=== PATIENT | female | born 1955 | race Caucasian/White ===

== ENCOUNTER 2016-08-13 23:04 | Emergency (ER) | payer MEDICAID ==
[2016-08-13 23:46] VITALS: BP 149/87
[2016-08-14] MEDS ORDERED: Cephalexin 250 MG Cap PO ONE (02:05)
--- NOTE | 2016-08-14 02:11 | EDM.PDOC ---
ED HPI GENERAL MEDICAL PROBLEM - General Chief Complaint: Skin Complaint Stated Complaint: SKIN RASH Time Seen by Provider: 08/14/16 02:00 Source of Information: Reports: Patient History Limitations: Reports: No Limitations - History of Present Illness INITIAL COMMENTS - FREE TEXT/NARRATIVE: Doretha presents today with redness, warmth and swelling of her left arm including the left elbow and left forearm. She has noticed some pain as well as pruritus. This feels similar to previous episodes of cellulitis in the same area. She has had fatigue and mild nausea throughout the day but has not had any vomiting. No significant pain at this time. No complaints of fevers or chills. No abdominal pain. Left Arm Pain Score (Numeric/FACES): 8 - Related Data Allergies Allergy/AdvReac Type Severity Reaction Status Date / Time acetaminophen [From Vicodin] AdvReac Vomiting Verified 06/23/15 11:57 hydrocodone bitartrate AdvReac Vomiting Verified 08/13/16 23:46 [From Vicodin] morphine AdvReac Vomiting Verified 08/13/16 23:46 oxycodone HCl [From Percodan] AdvReac Vomiting Verified 08/13/16 23:46 oxycodone terephthalate AdvReac Vomiting Verified 08/13/16 23:46 [From Percodan] pentazocine lactate AdvReac Vomiting Verified 08/13/16 23:46 [From Talwin] Home Meds: Home Meds Insulin Glarg,Human.Rec.Analog [LantUS] 30 unit SQ DAILY 05/05/13 [History] Lisinopril [Lisinopril] 5 mg PO DAILY 05/05/13 [History] Omeprazole [Omeprazole] 40 mg PO DAILY 05/05/13 [History] atorvaSTATin Calcium [Atorvastatin Calcium] 80 mg PO DAILY 05/05/13 [History] metFORMIN [Glucophage] 500 mg PO BID 05/05/13 [History] Liraglutide [Victoza] 1.2 mg SQ DAILY 08/13/16 [History] Past Medical History Other HEENT History: throat narrows and needs dilations done Cardiovascular History: Reports: High Cholesterol, Hypertension Gastrointestinal History: Reports: Diverticulosis, GERD OVEREDGER History: Reports: Musculoskeletal History: Reports: Back Pain, Chronic Neurological History: Reports: Neuropathy, Diabetic Psychiatric History: Reports: Depression Endocrine/Metabolic History: Reports: Diabetes, Type II Oncologic (Cancer) History: Reports: Breast Dermatologic History: Reports: Cellulitis - Infectious Disease History Infectious Disease History: Reports: Chicken Pox, Measles, Mumps - Past Surgical History GI Surgical History: Reports: Cholecystectomy, Colonoscopy, EGD Oncologic Surgical History: Reports: Lumpectomy, Mastectomy Social & Family History - Tobacco Use Smoking Status *Q: Never Smoker Second Hand Smoke Exposure: Yes - Caffeine Use Caffeine Use: Reports: Soda - Alcohol Use Days Per Week of Alcohol Use: 0 Number of Drinks Per Day: 1 Total Drinks Per Week: 0 - Recreational Drug Use Recreational Drug Use: No ED ROS GENERAL - Review of Systems Review Of Systems: See Below (A complete 12 point review of systems was obtained. Pertinent positives and negatives are noted in the history of present illness. All other systems were reviewed and were negative except as noted.) ED EXAM, SKIN/RASH Exam: See Below General Appearance: Alert, No Apparent Distress Head: Other Respiratory/Chest: No Respiratory Distress Cardiovascular: Regular Rate, Rhythm GI/Abdominal: Soft, No Distention Extremities: Normal Range of Motion, No Pedal Edema, Other (Small nodule medial portion left foot. This is soft and mobile) Skin: Warm, Dry, Erythema (Posterior left arm proximal to the elbow and extending onto the forearm), Excoriations (Mild left forearm), Increased Warmth , Other (No open areas) Course - Vital Signs Last Recorded V/S: Last Vital Signs Temp 36.4 C 08/13/16 23:42 Pulse 101 H 08/13/16 23:42 Resp 14 08/13/16 23:42 BP 149/87 H 08/13/16 23:42 Pulse Ox 95 08/13/16 23:42 - Orders/Labs/Meds Orders: Active Orders 24 hr Category Date Time Status Cephalexin [Keflex] Med 08/14/16 02:05 Once 500 mg PO ONETIME ONE - Re-Assessments/Exams Free Text/Narrative Re-Assessment/Exam: 08/14/16 02:09 Assessment Cellulitis left arm - history of similar and usually responds well to cephalexin. No evidence for sepsis at this time. -Cephalexin 500 mg 3 times daily for 8 days Follow-up of symptoms worsen or do not continue to get better Departure - Departure Time of Disposition: 02:15 Disposition: Home, Self-Care 01 Condition: Good Clinical Impression: Cellulitis - Discharge Information Instructions: Cellulitis, Adult Forms: ED Department Discharge Additional Instructions: Take cephalexin 500 mg 3 times daily with food for 8 days Follow-up with Dr. Luis if symptoms do not continue to improve or they get worse I would recommend that you avoid work and strenuous activities tomorrow but should be safe to return to work on Sunday - My Orders Last 24 Hours: My Active Orders 08/14/16 02:05 Cephalexin [Keflex] 500 mg PO ONETIME ONE - Assessment/Plan Last 24 Hours: My Active Orders 08/14/16 02:05 Cephalexin [Keflex] 500 mg PO ONETIME ONE
== END 2016-08-14 02:21 | disposition home or self-care (01) ==
LOC: JP.ED 23:04
DX: L03.114 Cellulitis of left upper limb (principal); E11.40 Type 2 diabetes mellitus with diabetic neuropathy, unspecified; I10 Essential (primary) hypertension; E78.00 Pure hypercholesterolemia, unspecified; K21.9 Gastro-esophageal reflux disease without esophagitis; Z90.49 Acquired absence of other specified parts of digestive tract; Z98.890 Other specified postprocedural states; Z79.4 Long term (current) use of insulin; Z79.84 Long term (current) use of oral hypoglycemic drugs; Z79.899 Other long term (current) drug therapy; Z88.5 Allergy status to narcotic agent; Z88.6 Allergy status to analgesic agent; Z88.8 Allergy status to other drugs, medicaments and biological substances
CPT/HCPCS: 99283; A9270

== ENCOUNTER 2017-07-18 00:51 | Inpatient (IN) | payer MEDICAID ==
[2017-07-18] MEDS ORDERED: Lactated Ringers 1,000 ML IV ONE (01:24)
[2017-07-18] MEDS ORDERED: Acetaminophen 500 MG Tab PO ONE (01:25)
--- NOTE | 2017-07-18 01:38 | EDM.PDOC ---
ED HPI GENERAL MEDICAL PROBLEM - General Chief Complaint: Skin Complaint Stated Complaint: CELLULITIS Time Seen by Provider: 07/18/17 01:20 Source of Information: Reports: Patient, Old Records, RN History Limitations: Reports: No Limitations - History of Present Illness INITIAL COMMENTS - FREE TEXT/NARRATIVE: 61 yo female presents with increased redness and warmth to the left arm starting around 9pm. Has had cellulitis in that arm in the past. Is s/p mastectomy in the L breast and has lymphedema in that arm. Feels chilled. No tx prior to arrival. Onset Date: 07/17/17 Duration: Hour(s):, Getting Worse Location: Reports: Upper Extremity, Left Quality: Reports: Dull Severity: Mild Improves with: Reports: None Worsens with: Reports: Other (time) Context: Reports: Other (see HPI) Associated Symptoms: Reports: Fever/Chills, Other (erythema) Treatments LOAN REVIEW OFFICER: Reports: Other (see below) (none) - Related Data Allergies Allergy/AdvReac Type Severity Reaction Status Date / Time propoxyphene [From Darvon] Allergy Nausea and Verified 07/18/17 01:18 Vomiting acetaminophen [From Vicodin] AdvReac Vomiting Verified 06/23/15 11:57 hydrocodone bitartrate AdvReac Vomiting Verified 08/13/16 23:46 [From Vicodin] morphine AdvReac Vomiting Verified 08/13/16 23:46 oxycodone HCl [From Percodan] AdvReac Vomiting Verified 08/13/16 23:46 oxycodone terephthalate AdvReac Vomiting Verified 08/13/16 23:46 [From Percodan] pentazocine lactate AdvReac Vomiting Verified 08/13/16 23:46 [From Talwin] Home Meds: Home Meds Insulin Glarg,Human.Rec.Analog [LantUS] 30 unit SQ DAILY 05/05/13 [History] Lisinopril 5 mg PO DAILY 05/05/13 [History] Omeprazole 40 mg PO DAILY 05/05/13 [History] atorvaSTATin Calcium [Atorvastatin Calcium] 80 mg PO DAILY 05/05/13 [History] metFORMIN [Glucophage] 500 mg PO DAILY 05/05/13 [History] Liraglutide [Victoza] 1.2 mg SQ DAILY 08/13/16 [History] Past Medical History HEENT History: Reports: Impaired Vision Other HEENT History: throat narrows and needs dilations done Cardiovascular History: Reports: High Cholesterol, Hypertension Gastrointestinal History: Reports: Diverticulosis, GERD RELATIONS COORDINATOR History: Reports: Musculoskeletal History: Reports: Back Pain, Chronic Neurological History: Reports: Neuropathy, Diabetic Psychiatric History: Reports: Depression Endocrine/Metabolic History: Reports: Diabetes, Type II Oncologic (Cancer) History: Reports: Breast Dermatologic History: Reports: Cellulitis - Infectious Disease History Infectious Disease History: Reports: Chicken Pox, Shingles - Past Surgical History GI Surgical History: Reports: Cholecystectomy, Colonoscopy, EGD Musculoskeletal Surgical History: Reports: Other (See Below) Other Musculoskeletal Surgeries/Procedures:: rotator cuff right Oncologic Surgical History: Reports: Lumpectomy Social & Family History - Family History Family Medical History: Noncontributory - Tobacco Use Smoking Status *Q: Never Smoker - Caffeine Use Caffeine Use: Reports: Soda - Recreational Drug Use Recreational Drug Use: No ED ROS GENERAL - Review of Systems Review Of Systems: See Below Constitutional: Reports: Fever, Chills HEENT: Reports: No Symptoms Respiratory: Reports: No Symptoms Cardiovascular: Reports: No Symptoms GI/Abdominal: Reports: No Symptoms : Reports: No Symptoms Musculoskeletal: Reports: No Symptoms Skin: Reports: Erythema (L arm) Neurological: Reports: No Symptoms Psychiatric: Reports: No Symptoms ED EXAM, SKIN/RASH Exam: See Below Exam Limited By: No Limitations General Appearance: Alert, WD/WN, No Apparent Distress Eye Exam: Bilateral Eye: Normal Inspection Ears: Normal External Exam, Normal Canal, Hearing Grossly Normal, Normal TMs Nose: Normal Inspection, Normal Mucosa, No Blood Throat/Mouth: Normal Inspection, Normal Lips, Normal Oropharynx, Normal Voice, No Airway Compromise Head: Atraumatic, Normocephalic Neck: Normal Inspection, Supple Respiratory/Chest: No Respiratory Distress, Lungs Clear, Normal Breath Sounds, No Accessory Muscle Use Cardiovascular: Regular Rate, Rhythm, Tachycardia GI/Abdominal: Normal Bowel Sounds, Soft, Non-Tender, No Distention Back Exam: Normal Inspection. No: CVA Tenderness (R), CVA Tenderness (L) Extremities: Normal Inspection, Normal Range of Motion, Non-Tender, No Pedal Edema Neurological: Alert, Oriented, CN II-XII Intact, Normal Cognition, No Motor/ Sensory Deficits Psychiatric: Normal Affect, Normal Mood Skin: Warm, Dry, Intact, Erythema (and warmth of the L arm, more warmth noted than erythema) Location, Skin: Upper Extremity, Left Characteristics: Confluent, Erythematous Associated features: Warmth Course - Vital Signs Text/Narrative:: Dr. James notified at 0245h, will see in ER. Last Recorded V/S: Last Vital Signs Temp 37.5 C 07/18/17 02:26 Pulse 109 H 07/18/17 01:20 Resp 18 07/18/17 01:20 BP 180/98 H 07/18/17 02:26 Pulse Ox 97 07/18/17 01:20 - Orders/Labs/Meds Orders: Active Orders 24 hr Category Date Time Status CULTURE BLOOD [BC] Stat Lab 07/18/17 01:35 Received CULTURE BLOOD [BC] Stat Lab 07/18/17 02:20 Received UA W/MICROSCOPIC [URIN] Stat Lab 07/18/17 01:25 Ordered Labs: Laboratory Tests 07/18/17 07/18/17 07/18/17 Range/Units 01:35 01:35 01:35 WBC 13.5 H (4.5-11.0) K/uL RBC 4.67 (3.30-5.50) M/uL Hgb 14.0 (12.0-15.0) g/dL Hct 41.6 (36.0-48.0) % MCV 89 (80-98) fL MCH 30 (27-31) pg MCHC 34 (32-36) % Plt Count 318 (150-400) K/uL Sodium 137 L (140-148) mmol/L Potassium 3.6 (3.6-5.2) mmol/L Chloride 102 (100-108) mmol/L Carbon Dioxide 27 (21-32) mmol/L Anion Gap 11.6 (5.0-14.0) mmol/L BUN 12 (7-18) mg/dL Creatinine 0.8 (0.6-1.0) mg/dL Est Cr Clr Drug Dosing 64.58 mL/min Estimated GFR (MDRD) > 60 (>60) Glucose 293 H (74-106) mg/dL Lactic Acid 2.8 H (0.4-2.0) mmol/L Calcium 8.9 (8.5-10.1) mg/dL Meds: Medications Discontinued Medications Generic Name Dose Route Start Last Admin Trade Name Cecilia PRN Reason Stop Dose Admin Acetaminophen 1,000 mg 07/18/17 01:25 07/18/17 01:44 Tylenol Extra Strength PO 07/18/17 01:26 1,000 mg ONETIME ONE Administration Lactated Ringer's 1,000 mls @ 1,000 mls/hr 07/18/17 01:24 07/18/17 01:44 Ringers, Lactated IV 07/18/17 02:23 1,000 mls/hr BOLUS ONE Administration Clindamycin Phosphate 900 mg/ 106 mls @ 200 mls/hr 07/18/17 02:10 07/18/17 02 :19 Sodium Chloride IV 07/18/17 02:41 200 mls/hr ONETIME ONE Administration Trimethoprim/Sulfamethoxazole 1 tab 07/18/17 02:10 07/18/17 02:19 Septra Ds PO 07/18/17 02:11 1 tab ONETIME ONE Administration Departure - Departure Time of Disposition: 03:10 Disposition: Admitted As Inpatient 67 Condition: Fair Clinical Impression: Elevated blood sugar Cellulitis Qualifiers: Site of cellulitis: extremity Site of cellulitis of extremity: upper extremity Laterality: left Qualified Code(s): L03.114 - Cellulitis of left upper limb - Discharge Information Referrals: PCP,None [Primary Care Provider] - Forms: ED Department Discharge - My Orders Last 24 Hours: My Active Orders 07/18/17 01:25 UA W/MICROSCOPIC [URIN] Stat 07/18/17 01:35 CULTURE BLOOD [BC] Stat 07/18/17 02:20 CULTURE BLOOD [BC] Stat - Assessment/Plan Last 24 Hours: My Active Orders 07/18/17 01:25 UA W/MICROSCOPIC [URIN] Stat 07/18/17 01:35 CULTURE BLOOD [BC] Stat 07/18/17 02:20 CULTURE BLOOD [BC] Stat
[2017-07-18] MEDS ORDERED: Clindamycin Phosphate 900 MG in Sodium Chloride 0.9% 100 ML IV ONE (02:10)
[2017-07-18] MEDS ORDERED: Sulfamethoxazole/Trimethoprim 800-160 MG Tab PO ONE (02:10)
[2017-07-18] MEDS ORDERED: Ondansetron 4 MG Tab.DIS PO PRN (03:27)
[2017-07-18] MEDS ORDERED: Piperacillin/Tazobactam 3.375 GM in Sodium Chloride 0.9% 50 ML IV SCH ×2 (03:45→10:00)
[2017-07-18] MEDS ORDERED: Piperacillin/Tazobactam 3.375 GM in Sodium Chloride 0.9% 50 ML IV STA (03:46)
--- NOTE | 2017-07-18 03:49 | PCM.HP ---
H&P History of Present Illness - General Date of Service: 07/18/17 Admit Problem/Dx: Admission Diagnosis/Problem Admission Diagnosis/Problem Cellulitis Source of Information: Patient History Limitations: Reports: No Limitations - History of Present Illness Initial Comments - Free Text/Narative: 61-year-old female with past medical history of diabetes, hypertension, hyperlipidemia came to the clinic with a complaining of redness of his left upper extremity started since last 6 hours. Patient reports that her redness is gradually progressing. Patient reports the pain is 2-3/10 intensity, throbbing type pain. Denies any recent injury. Patient complaining of one episode of fever denies any nausea, vomiting, abdominal pains. Patient denies any pain with urination, disturbance in bowel or bladder habits. Denies any chest pain, exertional dyspnea. Patient is a full code In the ED patient was diagnosed with cellulitis and received clindamycin and Bactrim medication. Patient labs showed lactic acid is elevated 2.8. Other review of systems are not significant. - Related Data Allergies/Adverse Reactions: Allergies Allergy/AdvReac Type Severity Reaction Status Date / Time propoxyphene [From Darvon] Allergy Nausea and Verified 07/18/17 01:18 Vomiting acetaminophen [From Vicodin] AdvReac Vomiting Verified 06/23/15 11:57 hydrocodone bitartrate AdvReac Vomiting Verified 08/13/16 23:46 [From Vicodin] morphine AdvReac Vomiting Verified 08/13/16 23:46 oxycodone HCl [From Percodan] AdvReac Vomiting Verified 08/13/16 23:46 oxycodone terephthalate AdvReac Vomiting Verified 08/13/16 23:46 [From Percodan] pentazocine lactate AdvReac Vomiting Verified 08/13/16 23:46 [From Talwin] Home Medications: Home Meds Insulin Glarg,Human.Rec.Analog [LantUS] 30 unit SQ DAILY 05/05/13 [History] Lisinopril 5 mg PO DAILY 05/05/13 [History] Omeprazole 40 mg PO DAILY 05/05/13 [History] atorvaSTATin Calcium [Atorvastatin Calcium] 80 mg PO DAILY 05/05/13 [History] metFORMIN [Glucophage] 500 mg PO DAILY 05/05/13 [History] Liraglutide [Victoza] 1.2 mg SQ DAILY 08/13/16 [History] Past Medical History HEENT History: Reports: Impaired Vision Other HEENT History: throat narrows and needs dilations done Cardiovascular History: Reports: High Cholesterol, Hypertension Gastrointestinal History: Reports: Diverticulosis, GERD I&C TECH History: Reports: Musculoskeletal History: Reports: Back Pain, Chronic Neurological History: Reports: Neuropathy, Diabetic Psychiatric History: Reports: Depression Endocrine/Metabolic History: Reports: Diabetes, Type II Oncologic (Cancer) History: Reports: Breast Dermatologic History: Reports: Cellulitis - Infectious Disease History Infectious Disease History: Reports: Chicken Pox, Shingles - Past Surgical History GI Surgical History: Reports: Cholecystectomy, Colonoscopy, EGD Musculoskeletal Surgical History: Reports: Other (See Below) Other Musculoskeletal Surgeries/Procedures:: rotator cuff right Oncologic Surgical History: Reports: Lumpectomy Social & Family History - Family History Family Medical History: Noncontributory - Tobacco Use Smoking Status *Q: Never Smoker - Caffeine Use Caffeine Use: Reports: Soda - Recreational Drug Use Recreational Drug Use: No H&P Review of Systems - Review of Systems: Review Of Systems: See Below General: Reports: Fever, Chills Pulmonary: Denies: Shortness of Breath, Wheezing, Pleuritic Chest Pain Cardiovascular: Denies: Chest Pain, Palpitations Gastrointestinal: Denies: Abdominal Pain, Anorexia, Black Stool, Constipation, Diarrhea Genitourinary: Denies: Dysuria, Frequency Musculoskeletal: Reports: Shoulder Pain. Denies: Neck Pain Skin: Denies: Cyanosis, Jaundice Psychiatric: Denies: Confusion Neurological: Denies: Confusion Hematologic/Lymphatic: Denies: Anemia, Easy Bleeding Immunologic: Denies: Anaphylaxis Exam - Exam Exam: See Below - Vital Signs Vital Signs: Last Vital Signs Temp 37.5 C 07/18/17 02:26 Pulse 109 H 07/18/17 01:20 Resp 18 07/18/17 01:20 BP 180/98 H 07/18/17 02:26 Pulse Ox 97 07/18/17 01:20 Weight: 78.5 kg - Exam General: Alert, Oriented Neck: Supple, Trachea Midline Lungs: Clear to Auscultation, Normal Respiratory Effort Cardiovascular: Regular Rate, Regular Rhythm GI/Abdominal Exam: Normal Bowel Sounds, Soft Extremities: Other (Redness present on the posterior surface of the left upper extremity tenderness is positive) Neuro Extensive - Mental Status: Alert, Oriented x3 - Patient Data Lab Results Last 24 hrs: Laboratory Results - last 24 hr 07/18/17 07/18/17 07/18/17 Range/Units 01:35 01:35 01:35 WBC 13.5 H (4.5-11.0) K/uL RBC 4.67 (3.30-5.50) M/uL Hgb 14.0 (12.0-15.0) g/dL Hct 41.6 (36.0-48.0) % MCV 89 (80-98) fL MCH 30 (27-31) pg MCHC 34 (32-36) % Plt Count 318 (150-400) K/uL Sodium 137 L (140-148) mmol/L Potassium 3.6 (3.6-5.2) mmol/L Chloride 102 (100-108) mmol/L Carbon Dioxide 27 (21-32) mmol/L Anion Gap 11.6 (5.0-14.0) mmol/L BUN 12 (7-18) mg/dL Creatinine 0.8 (0.6-1.0) mg/dL Est Cr Clr Drug Dosing 64.58 mL/min Estimated GFR (MDRD) > 60 (>60) Glucose 293 H (74-106) mg/dL Lactic Acid 2.8 H (0.4-2.0) mmol/L Calcium 8.9 (8.5-10.1) mg/dL Result Diagrams: 07/18/17 01:35 07/18/17 01:35 - Problem List (1) Cellulitis SNOMED Code(s): 328995793 ICD Code: L03.90 - CELLULITIS, UNSPECIFIED Status: Acute Current Visit: Yes Qualifiers: Site of cellulitis: extremity Site of cellulitis of extremity: upper extremity Laterality: left Qualified Code(s): L03.114 - Cellulitis of left upper limb (2) Diabetes SNOMED Code(s): 40521364 ICD Code: E11.9 - TYPE 2 DIABETES MELLITUS WITHOUT COMPLICATIONS Status: Acute Current Visit: Yes (3) Hyperlipidemia SNOMED Code(s): 02661611 ICD Code: E78.5 - HYPERLIPIDEMIA, UNSPECIFIED Status: Acute Current Visit : Yes (4) H/O rotator cuff surgery SNOMED Code(s): 495857894, 775099487 ICD Code: Z98.890 - OTHER SPECIFIED POSTPROCEDURAL STATES Status: Acute Current Visit: Yes Problem List Initiated/Reviewed/Updated: Yes Orders Last 24hrs: Active Orders 24 hr Category Date Time Status Patient Status [ADT] Routine ADT 07/18/17 03:27 Ordered Bedrest Bathroom Privileges [RC] ASDIRECTED Care 07/18/17 03:27 Ordered Height and Weight [RC] DAILY Care 07/18/17 03:27 Ordered Intake and Output [RC] QSHIFT Care 07/18/17 03:28 Ordered Oxygen Therapy [RC] PRN Care 07/18/17 03:27 Ordered Pulse Oximetry [RC] PRN Care 07/18/17 03:28 Ordered VTE/DVT Education [RC] Per Unit Routine Care 07/18/17 03:27 Ordered Vital Signs [RC] Q4H Care 07/18/17 03:27 Ordered Pharmacy Consult [Consult to Pharmacy] [CONS] Routine Cons 07/18/17 03:32 Ordered Consistent Carbohydrate Diet [DIET] Diet 07/18/17 Breakfast Ordered BASIC METABOLIC PANEL,BMP [CHEM] AM Lab 07/18/17 05:11 Ordered CBC WITH AUTO DIFF [HEME] AM Lab 07/18/17 05:11 Ordered CULTURE BLOOD [BC] Stat Lab 07/18/17 01:35 Received CULTURE BLOOD [BC] Stat Lab 07/18/17 02:20 Received LACTIC ACID [CHEM] Timed Lab 07/18/17 11:55 Ordered UA W/MICROSCOPIC [URIN] Stat Lab 07/18/17 01:25 Ordered Acetaminophen [Tylenol] Med 07/18/17 03:27 Ordered 650 mg PO Q4H PRN Enoxaparin [Lovenox] Med 07/18/17 09:00 Ordered 40 mg SUBCUT DAILY Insulin Detemir [Levemir] Med 07/18/17 21:00 Ordered 15 unit SUBCUT BEDTIME Insulin Lispro [HumaLOG] Med 07/18/17 07:30 Ordered See Protocol SUBCUT BIDAC Ondansetron [Zofran ODT] Med 07/18/17 03:27 Ordered 4 mg PO Q6H PRN Pantoprazole [ProTONIX] Med 07/18/17 09:00 Ordered 40 mg PO DAILY Piperacillin/Tazobactam [Zosyn] 3.375 gm Med 07/18/17 03:45 Ordered Sodium Chloride 0.9% [Normal Saline] 50 ml IV Q6H Resuscitation Status Routine Resus Stat 07/18/17 03:27 Ordered Medication Orders Acetaminophen (Tylenol) 650 mg PO Q4H PRN PRN Reason: Pain (Mild 1-3)/fever Enoxaparin Sodium (Lovenox) 40 mg SUBCUT DAILY EITAN Piperacillin Sod/Tazobactam (Sod 3.375 gm/ Sodium Chloride) 50 mls @ 100 mls/ hr IV Q6H EITAN Insulin Detemir (Levemir) 15 unit SUBCUT BEDTIME EITAN Insulin Human Lispro (Humalog) 0 unit SUBCUT BIDAC EITAN; Protocol Ondansetron HCl (Zofran Odt) 4 mg PO Q6H PRN PRN Reason: Nausea able to take PO Pantoprazole Sodium (Protonix) 40 mg PO DAILY [facility] Assessment/Plan Comment:: 61-year-old female with past medical history of diabetes, hyperlipidemia came to the ED with the complaining of redness of left upper extremity and diagnosed with cellulitis and admitted into the hospital in observation status. Started Zosyn 3.75 every 6 hourly We'll continue IV fluids Lactic acid is elevated 2.8, will repeat tomorrow Sliding-scale insulin for diabetes We'll hold metformin CBC, BMP tomorrow CODE STATUS full code Diet consistent carbohydrate diet IV fluids 125 mL per hour Ringer lactate DVT prophylaxis Lovenox 40 subcutaneous daily
[2017-07-18] MEDS: Lactated Ringers 1,000 ML IV SCH ×2 (06:01→16:40)
[2017-07-18] MEDS: Acetaminophen 325 MG Tab PO PRN ×2 (06:06→15:55)
[2017-07-18] MEDS ORDERED: Diphtheria,Pertussis(Acell),Tetanus Vaccine 0.5 ML SDV IM ONE ×2 (06:36→10:00)
[2017-07-18] MEDS ORDERED: Pantoprazole 40 MG Tab.CR PO SCH (07:30)
[2017-07-18] MEDS ORDERED: Insulin Lispro 100 Units/ML 3 ML Vial SUBCUT SCH (07:30)
[2017-07-18] MEDS ORDERED: Lactated Ringers 1,000 ML IV SCH (08:30)
[2017-07-18] MEDS: Enoxaparin 40 MG/0.4 ML Syringe SUBCUT SCH (08:45)
[2017-07-18] MEDS ORDERED: Vancomycin 1 GM SDV IV SCH (09:00)
[2017-07-18] MEDS ORDERED: Insulin Aspart 100 Units/ML 3 ML Pen ONE (09:19)
[2017-07-18] MEDS: Insulin Aspart 100 Units/ML 3 ML Pen SUBCUT SCH ×2 (09:24→16:41)
[2017-07-18] MEDS: Piperacillin/Tazobactam/Dext 3.375 GM in Premix Bag 1 BAG IV SCH ×3 (11:39→23:17)
--- NOTE | 2017-07-18 11:46 | PCM.PN ---
- General Info Date of Service: 07/18/17 Admission Dx/Problem (Free Text): Ms. Campbell is a 61-year-old woman who was admitted early this morning with abrupt onset of erythema of the left arm as well as fever. She has a known history of type 2 diabetes mellitus as well as lymphedema of the left arm secondary to previous mastectomy and axillary lymph node dissection. She's had previous episodes of cellulitis involving the arm. Symptoms began at approximately 9 PM last night and progressed rapidly to where she was experiencing fever chills and progressive weakness with erythema the left arm. She presented to the emergency room early this morning, blood cultures have been obtained and she was started on IV antibiotic therapy with Zosyn. Since admission vancomycin is also been started and she has received IV fluids per sepsis protocol. On evaluation she was found to be tachycardic and lactic acid level was elevated at 2.8. Lactic acid level this morning is pending. Functional Status: Reports: Pain Controlled, Tolerating Diet, Urinating - Review of Systems General: Reports: Fever, Weakness, Chills Pulmonary: Reports: No Symptoms Cardiovascular: Reports: No Symptoms Gastrointestinal: Reports: No Symptoms Skin: Reports: Other (Lymphedema left arm, cellulitis involving the hand and forearm) - Patient Data Vitals - Most Recent: Last Vital Signs Temp 98.0 F 07/18/17 11:27 Pulse 97 07/18/17 11:27 Resp 18 07/18/17 11:27 BP 142/70 H 07/18/17 11:27 Pulse Ox 96 07/18/17 11:27 Weight - Most Recent: 175 lb 9.606 oz I&O - Last 24 Hours: Intake & Output 07/17/17 07/18/17 07/18/17 22:59 06:59 14:59 Intake Total 240 Output Total 1650 Balance -1410 Lab Results Last 24 Hours: Laboratory Results - last 24 hr 07/18/17 07/18/17 07/18/17 Range/Units 01:35 01:35 01:35 WBC 13.5 H (4.5-11.0) K/uL RBC 4.67 (3.30-5.50) M/uL Hgb 14.0 (12.0-15.0) g/dL Hct 41.6 (36.0-48.0) % MCV 89 (80-98) fL MCH 30 (27-31) pg MCHC 34 (32-36) % Plt Count 318 (150-400) K/uL Neut % (Auto) (36-66) % Lymph % (Auto) (24-44) % [place] % (Auto) (2-6) % Eos % (Auto) (2-4) % Baso % (Auto) (0-1) % Sodium 137 L (140-148) mmol/L Potassium 3.6 (3.6-5.2) mmol/L Chloride 102 (100-108) mmol/L Carbon Dioxide 27 (21-32) mmol/L Anion Gap 11.6 (5.0-14.0) mmol/L BUN 12 (7-18) mg/dL Creatinine 0.8 (0.6-1.0) mg/dL Est Cr Clr Drug Dosing 64.58 mL/min Estimated GFR (MDRD) > 60 (>60) Glucose 293 H (74-106) mg/dL Lactic Acid 2.8 H (0.4-2.0) mmol/L Calcium 8.9 (8.5-10.1) mg/dL Urine Color Urine Appearance Urine pH (4.5-8.0) Ur Specific [place] (1.008-1.030) Urine Protein (NEGATIVE) mg/dL Urine Glucose (UA) (NEGATIVE) mg/dL Urine Ketones (NEGATIVE) mg/dL Urine Occult Blood (NEGATIVE) Urine Nitrite (NEGATIVE) Urine Bilirubin (NEGATIVE) Urine Urobilinogen (NORMAL) mg/dL Ur Leukocyte Esterase (NEGATIVE) Urine RBC (0-5) Urine WBC (0-5) Ur Epithelial Cells Amorphous Sediment Urine Bacteria Urine Mucus 07/18/17 07/18/17 07/18/17 Range/Units 03:34 06:04 06:04 WBC 12.8 H (4.5-11.0) K/uL RBC 4.40 (3.30-5.50) M/uL Hgb 13.2 (12.0-15.0) g/dL Hct 39.4 (36.0-48.0) % MCV 90 (80-98) fL MCH 30 (27-31) pg MCHC 34 (32-36) % Plt Count 314 (150-400) K/uL Neut % (Auto) 79 H (36-66) % Lymph % (Auto) 13 L (24-44) % [place] % (Auto) 7 H (2-6) % Eos % (Auto) 1 L (2-4) % Baso % (Auto) 0 (0-1) % Sodium 139 L (140-148) mmol/L Potassium 3.6 (3.6-5.2) mmol/L Chloride 103 (100-108) mmol/L Carbon Dioxide 25 (21-32) mmol/L Anion Gap 14.6 H (5.0-14.0) mmol/L BUN 10 (7-18) mg/dL Creatinine 0.8 (0.6-1.0) mg/dL Est Cr Clr Drug Dosing 67.29 mL/min Estimated GFR (MDRD) > 60 (>60) Glucose 189 H (74-106) mg/dL Lactic Acid (0.4-2.0) mmol/L Calcium 8.5 (8.5-10.1) mg/dL Urine Color Yellow Urine Appearance Clear Urine pH 6.0 (4.5-8.0) Ur Specific [place] 1.015 (1.008-1.030) Urine Protein Negative (NEGATIVE) mg/dL Urine Glucose (UA) >1000 H (NEGATIVE) mg/dL Urine Ketones Negative (NEGATIVE) mg/dL Urine Occult Blood Negative (NEGATIVE) Urine Nitrite Negative (NEGATIVE) Urine Bilirubin Negative (NEGATIVE) Urine Urobilinogen Normal (NORMAL) mg/dL Ur Leukocyte Esterase Negative (NEGATIVE) Urine RBC 0-5 (0-5) Urine WBC 0-5 (0-5) Ur Epithelial Cells Few Amorphous Sediment Not seen Urine Bacteria Few Urine Mucus Not seen Med Orders - Current: Current Medications Acetaminophen (Tylenol) 650 mg PO Q4H PRN PRN Reason: Pain (Mild 1-3)/fever Last Admin: 07/18/17 06:06 Dose: 650 mg Enoxaparin Sodium (Lovenox) 40 mg SUBCUT DAILY [facility] Last Admin: 07/18/17 08:45 Dose: 40 mg Lactated Ringer's (Ringers, Lactated) 1,000 mls @ 125 mls/hr IV ASDIRECTED [facility] Last Admin: 07/18/17 06:01 Dose: 125 mls/hr Lactated Ringer's (Ringers, Lactated) 1,000 mls @ 500 mls/hr IV ASDIRECTED [facility] Stop: 07/18/17 13:31 Last Admin: 07/18/17 08:39 Dose: 500 mls/hr Vancomycin HCl 1.25 gm/ Sodium (Chloride) 250 mls @ 250 mls/hr IV Q12H [facility] Last Admin: 07/18/17 09:01 Dose: 250 mls/hr Piperacillin/Tazobactam/ (Dextrose 3.375 gm/ Premix) 50 mls @ 100 mls/hr IV Q6H [facility] Last Admin: 07/18/17 11:39 Dose: 100 mls/hr Insulin Aspart (Novolog) 0 unit SUBCUT BIDAC [facility]; Protocol Last Admin: 07/18/17 09:24 Dose: 3 units Insulin Detemir (Levemir) 15 unit SUBCUT BEDTIME [facility] Ondansetron HCl (Zofran Odt) 4 mg PO Q6H PRN PRN Reason: Nausea able to take PO Pantoprazole Sodium (Protonix) 40 mg PO ACBREAKFAST [facility] Last Admin: 07/18/17 08:45 Dose: 40 mg Discontinued Medications Acetaminophen (Tylenol Extra Strength) 1,000 mg PO ONETIME ONE Stop: 07/18/17 01:26 Last Admin: 07/18/17 01:44 Dose: 1,000 mg Diphtheria/Tetanus/Acell Pertussis (Adacel) 0.5 ml IM .ONCE ONE Stop: 07/18/17 10:01 Last Admin: 07/18/17 09:11 Dose: 0.5 ml Lactated Ringer's (Ringers, Lactated) 1,000 mls @ 1,000 mls/hr IV BOLUS ONE Stop: 07/18/17 02:23 Last Admin: 07/18/17 01:44 Dose: 1,000 mls/hr Clindamycin Phosphate 900 mg/ (Sodium Chloride) 106 mls @ 200 mls/hr IV ONETIME ONE Stop: 07/18/17 02:41 Last Admin: 07/18/17 02:19 Dose: 200 mls/hr Piperacillin Sod/Tazobactam (Sod 3.375 gm/ Sodium Chloride) 50 mls @ 100 mls/ hr IV Q6H [facility] Last Admin: 07/18/17 03:47 Dose: Not Given Piperacillin Sod/Tazobactam (Sod 3.375 gm/ Sodium Chloride) 50 mls @ 100 mls/ hr IV NOW STA Stop: 07/18/17 04:15 Last Admin: 07/18/17 03:57 Dose: 100 mls/hr Piperacillin Sod/Tazobactam (Sod 3.375 gm/ Sodium Chloride) 50 mls @ 100 mls/ hr IV Q6H [facility] Insulin Aspart (Novolog) Confirm Administered Dose 300 unit .ROUTE .STK-MED ONE Stop: 07/18/17 09:20 Last Admin: 07/18/17 11:22 Dose: Not Given Insulin Human Lispro (Humalog) 0 unit SUBCUT BIDAC [facility]; Protocol Trimethoprim/Sulfamethoxazole (Septra Ds) 1 tab PO ONETIME ONE Stop: 07/18/17 02:11 Last Admin: 07/18/17 02:19 Dose: 1 tab - Exam Quality Assessment: DVT Prophylaxis General: Alert, Oriented, Cooperative, Mild Distress Lungs: Clear to Auscultation, Normal Respiratory Effort Cardiovascular: Regular Rate, Regular Rhythm, No Murmurs GI/Abdominal Exam: Soft, Non-Tender, No Organomegaly, No Distention Extremities: Increased Warmth (Left arm), Redness (Left arm), Other (Lymphedema left arm) - Problem List Review Problem List Initiated/Reviewed/Updated: Yes - My Orders Last 24 Hours: My Active Orders 07/18/17 08:30 Lactated Ringers [Ringers, Lactated] 1,000 ml IV ASDIRECTED 07/18/17 09:00 Vancomycin 1.25 gm Sodium Chloride 0.9% [Normal Saline] 250 ml IV Q12H 07/18/17 16:30 GLUCOSE POC LAB TO COLLECT [POC] QIDACANDBED 07/18/17 21:00 GLUCOSE POC LAB TO COLLECT [POC] QIDACANDBED 07/19/17 05:00 BASIC METABOLIC PANEL,BMP [CHEM] Timed CBC WITH AUTO DIFF [HEME] Timed MAGNESIUM [CHEM] Timed 07/20/17 08:30 VANCOMYCIN TROUGH [CHEM] Routine - Plan Plan:: ASSESSMENT AND PLAN CELLULITIS OF THE LEFT ARM WITH SEPSIS-underlying lymphedema and type 2 diabetes mellitus. History of previous cellulitis involving the arm -Add vancomycin, pharmacy to dose, pending culture results -Started Zosyn 3.75 every 6 hourly -IV fluids per protocol -Repeat lactic acid level pending -Blood cultures pending TYPE 2 DIABETES MELLITUS -Sliding-scale insulin for diabetes -We'll hold metformin -CBC, BMP tomorrow CODE STATUS full code Diet consistent carbohydrate diet DVT prophylaxis Lovenox 40 subcutaneous daily
[2017-07-18] MEDS: Lisinopril 5 MG Tab PO SCH (12:59)
[2017-07-18] MEDS: Pantoprazole 40 MG Tab.CR PO SCH (13:00)
[2017-07-18] MEDS: atorvaSTATin 20 MG Tab PO SCH (13:00)
[2017-07-18] MEDS: Liraglutide (rDNA Origin) 0.6 MG/0.1 ML 3 ML Pen SUBCUT SCH (13:01)
[2017-07-18] MEDS: Insulin Detemir 100 Units/ML 3 ML Pen SUBCUT SCH ×2 (13:03→22:11)
[2017-07-18] MEDS: HYDROmorphone 0.5 MG/0.5 ML Syringe IVPUSH PRN ×3 (16:58→22:16)
--- NOTE | 2017-07-18 20:04 | PCM.SN ---
- Free Text/Narrative Note: time: 19:59; call from [address] [place] [address]; lab result, sepsis risk 0: vital signs TPR 37.4-96-18 b/p 140/83 o2 sat 96% lactic acid 1.8, previous 2.1 at 12:00p A: lactic acid normal range P: continue present plan of care.
[2017-07-19] MEDS: Lactated Ringers 1,000 ML IV SCH ×2 (02:46→11:43)
[2017-07-19] MEDS: HYDROmorphone 0.5 MG/0.5 ML Syringe IVPUSH PRN ×3 (03:07→07:12)
[2017-07-19] MEDS: Piperacillin/Tazobactam/Dext 3.375 GM in Premix Bag 1 BAG IV SCH ×4 (04:54→22:15)
[2017-07-19] MEDS: Pantoprazole 40 MG Tab.CR PO SCH (07:19)
[2017-07-19] MEDS: Insulin Aspart 100 Units/ML 3 ML Pen SUBCUT SCH ×3 (08:15→20:48)
[2017-07-19] MEDS: atorvaSTATin 20 MG Tab PO SCH (08:19)
[2017-07-19] MEDS: Lisinopril 5 MG Tab PO SCH (08:19)
[2017-07-19] MEDS: Enoxaparin 40 MG/0.4 ML Syringe SUBCUT SCH (08:19)
[2017-07-19] MEDS: Liraglutide (rDNA Origin) 0.6 MG/0.1 ML 3 ML Pen SUBCUT SCH (08:20)
[2017-07-19] MEDS: Insulin Detemir 100 Units/ML 3 ML Pen SUBCUT SCH ×2 (08:20→20:49)
[2017-07-19] MEDS ORDERED: Magnesium Sulfate/Water 2 GM in Premix Bag 1 BAG IV ONE (10:30)
[2017-07-19] MEDS: Lactobacillus Rhamnosus GG (Probiotic) Cap PO SCH ×2 (10:38→20:48)
[2017-07-19] MEDS: Magnesium Oxide 400 MG Tab PO SCH ×2 (10:38→20:48)
--- NOTE | 2017-07-19 12:02 | PCM.PN ---
<Shakira,Dulce - Last Filed: 07/19/17 12:29> - General Info Date of Service: 07/19/17 Admission Dx/Problem (Free Text): Ms. Campbell is a 61-year-old woman who was admitted 07/18 with abrupt onset of erythema of the left arm as well as fever. She has a known history of type 2 diabetes mellitus as well as lymphedema of the left arm secondary to previous mastectomy and axillary lymph node dissection. She's had previous episodes of cellulitis involving the arm. Patient was started on vancomycin and zosyn for the cellulitus and early sepsis. Subjective Update: Ms. Campbell states she is feeling better but 'not quite there yet'. Patient states that she did not sleep very well more so due to pain unrelated to cellulitis from her recent surgery of the right shoulder and the tetanus shot received the previous day. Patient states the pain medication is helping some but leary of taking this due to nausea she gets with most pain medications. Functional Status: Reports: Pain Controlled, Tolerating Diet, Ambulating, Urinating - Review of Systems General: Reports: Fever HEENT: Reports: No Symptoms Pulmonary: Reports: No Symptoms. Denies: Shortness of Breath Cardiovascular: Reports: No Symptoms Gastrointestinal: Reports: No Symptoms Skin: Reports: Other (red warm left arm improving) - Patient Data Vitals - Most Recent: Last Vital Signs Temp 36.4 C 07/19/17 10:47 Pulse 76 07/19/17 10:47 Resp 16 07/19/17 10:47 BP 147/87 H 07/19/17 10:47 Pulse Ox 95 07/19/17 10:47 Weight - Most Recent: 175 lb 9.606 oz I&O - Last 24 Hours: Intake & Output 07/18/17 07/19/17 07/19/17 22:59 06:59 14:59 Intake Total 2037 1161 850 Output Total 1900 1350 1950 Balance 137 -189 -1100 Lab Results Last 24 Hours: Laboratory Results - last 24 hr 07/18/17 07/18/17 07/19/17 Range/Units 11:55 19:15 04:50 WBC 7.4 (4.5-11.0) K/uL RBC 3.99 (3.30-5.50) M/uL Hgb 11.9 L (12.0-15.0) g/dL Hct 35.8 L (36.0-48.0) % MCV 90 (80-98) fL MCH 30 (27-31) pg MCHC 33 (32-36) % Plt Count 250 (150-400) K/uL Neut % (Auto) 59 (36-66) % Lymph % (Auto) 31 (24-44) % [place] % (Auto) 8 H (2-6) % Eos % (Auto) 1 L (2-4) % Baso % (Auto) 0 (0-1) % Sodium (140-148) mmol/L Potassium (3.6-5.2) mmol/L Chloride (100-108) mmol/L Carbon Dioxide (21-32) mmol/L Anion Gap (5.0-14.0) mmol/L BUN (7-18) mg/dL Creatinine (0.6-1.0) mg/dL Est Cr Clr Drug Dosing mL/min Estimated GFR (MDRD) (>60) Glucose (74-106) mg/dL Lactic Acid 2.1 H 1.8 (0.4-2.0) mmol/L Calcium (8.5-10.1) mg/dL Magnesium (1.8-2.4) mg/dL 07/19/17 Range/Units 04:50 WBC (4.5-11.0) K/uL RBC (3.30-5.50) M/uL Hgb (12.0-15.0) g/dL Hct (36.0-48.0) % MCV (80-98) fL MCH (27-31) pg MCHC (32-36) % Plt Count (150-400) K/uL Neut % (Auto) (36-66) % Lymph % (Auto) (24-44) % [place] % (Auto) (2-6) % Eos % (Auto) (2-4) % Baso % (Auto) (0-1) % Sodium 138 L (140-148) mmol/L Potassium 3.9 (3.6-5.2) mmol/L Chloride 105 (100-108) mmol/L Carbon Dioxide 26 (21-32) mmol/L Anion Gap 10.9 (5.0-14.0) mmol/L BUN 8 (7-18) mg/dL Creatinine 0.7 (0.6-1.0) mg/dL Est Cr Clr Drug Dosing 76.78 mL/min Estimated GFR (MDRD) > 60 (>60) Glucose 196 H (74-106) mg/dL Lactic Acid (0.4-2.0) mmol/L Calcium 8.1 L (8.5-10.1) mg/dL Magnesium 1.7 L (1.8-2.4) mg/dL Jonathan Results Last 24 Hours: Microbiology 07/18/17 02:20 Aerobic Blood Culture - Preliminary Blood - Arm, Right NO GROWTH AFTER 1 DAY Anaerobic Blood Culture - Preliminary NO GROWTH AFTER 1 DAY 07/18/17 01:35 Aerobic Blood Culture - Preliminary Blood - Venous - Iv Start NO GROWTH AFTER 1 DAY Anaerobic Blood Culture - Preliminary NO GROWTH AFTER 1 DAY Med Orders - Current: Current Medications Acetaminophen (Tylenol) 650 mg PO Q4H PRN PRN Reason: Pain (Mild 1-3)/fever Last Admin: 07/18/17 15:55 Dose: 650 mg Atorvastatin Calcium (Lipitor) 80 mg PO DAILY [facility] Last Admin: 07/19/17 08:19 Dose: 80 mg Enoxaparin Sodium (Lovenox) 40 mg SUBCUT DAILY [facility] Last Admin: 07/19/17 08:19 Dose: 40 mg Hydromorphone HCl (Dilaudid) 0.25 mg IVPUSH Q2H PRN PRN Reason: Pain Last Admin: 07/19/17 07:12 Dose: 0.25 mg Lactated Ringer's (Ringers, Lactated) 1,000 mls @ 125 mls/hr IV ASDIRECTED [facility] Last Admin: 07/19/17 11:43 Dose: 125 mls/hr Vancomycin HCl 1.25 gm/ Sodium (Chloride) 250 mls @ 250 mls/hr IV Q12H [facility] Last Admin: 07/19/17 08:15 Dose: 250 mls/hr Piperacillin/Tazobactam/ (Dextrose 3.375 gm/ Premix) 50 mls @ 100 mls/hr IV Q6H [facility] Last Admin: 07/19/17 10:38 Dose: 100 mls/hr Magnesium Sulfate 2 gm/ Premix 50 mls @ 25 mls/hr IV ONETIME ONE Stop: 07/19/17 12:29 Last Admin: 07/19/17 11:44 Dose: 25 mls/hr Insulin Aspart (Novolog) 0 unit SUBCUT BIDAC [facility]; Protocol Last Admin: 07/19/17 08:15 Dose: Not Given Insulin Detemir (Levemir) 15 unit SUBCUT BEDTIME [facility] Last Admin: 07/18/17 22:11 Dose: 15 units Insulin Detemir (Levemir) 30 unit SUBCUT DAILY [facility] Last Admin: 07/19/17 08:20 Dose: 30 unit Lactobacillus Rhamnosus (Culturelle) 1 cap PO BID [facility] Last Admin: 07/19/17 10:38 Dose: 1 cap Liraglutide (Victoza) 1.2 mg SUBCUT DAILY [facility] Last Admin: 07/19/17 08:20 Dose: 1.2 mg Lisinopril (Prinivil) 5 mg PO DAILY [facility] Last Admin: 07/19/17 08:19 Dose: 5 mg Magnesium Oxide (Magnesium Oxide) 400 mg PO BID [facility] Last Admin: 07/19/17 10:38 Dose: 400 mg Ondansetron HCl (Zofran Odt) 4 mg PO Q6H PRN PRN Reason: Nausea able to take PO Pantoprazole Sodium (Protonix) 40 mg PO ACBREAKFAST [facility] Last Admin: 07/19/17 07:19 Dose: 40 mg Discontinued Medications Acetaminophen (Tylenol Extra Strength) 1,000 mg PO ONETIME ONE Stop: 07/18/17 01:26 Last Admin: 07/18/17 01:44 Dose: 1,000 mg Diphtheria/Tetanus/Acell Pertussis (Adacel) 0.5 ml IM .ONCE ONE Stop: 07/18/17 10:01 Last Admin: 07/18/17 09:11 Dose: 0.5 ml Lactated Ringer's (Ringers, Lactated) 1,000 mls @ 1,000 mls/hr IV BOLUS ONE Stop: 07/18/17 02:23 Last Admin: 07/18/17 01:44 Dose: 1,000 mls/hr Clindamycin Phosphate 900 mg/ (Sodium Chloride) 106 mls @ 200 mls/hr IV ONETIME ONE Stop: 07/18/17 02:41 Last Admin: 07/18/17 02:19 Dose: 200 mls/hr Piperacillin Sod/Tazobactam (Sod 3.375 gm/ Sodium Chloride) 50 mls @ 100 mls/ hr IV Q6H [facility] Last Admin: 07/18/17 03:47 Dose: Not Given Piperacillin Sod/Tazobactam (Sod 3.375 gm/ Sodium Chloride) 50 mls @ 100 mls/ hr IV NOW STA Stop: 07/18/17 04:15 Last Admin: 07/18/17 03:57 Dose: 100 mls/hr Piperacillin Sod/Tazobactam (Sod 3.375 gm/ Sodium Chloride) 50 mls @ 100 mls/ hr IV Q6H [facility] Lactated Ringer's (Ringers, Lactated) 1,000 mls @ 500 mls/hr IV ASDIRECTED [facility] Stop: 07/18/17 13:31 Last Admin: 07/18/17 08:39 Dose: 500 mls/hr Insulin Aspart (Novolog) Confirm Administered Dose 300 unit .ROUTE .STK-MED ONE Stop: 07/18/17 09:20 Last Admin: 07/18/17 11:22 Dose: Not Given Insulin Human Lispro (Humalog) 0 unit SUBCUT BIDAC [facility]; Protocol Last Admin: 07/18/17 12:24 Dose: Not Given Pantoprazole Sodium (Protonix) 40 mg PO ACBREAKFAST [facility] Last Admin: 07/18/17 08:45 Dose: 40 mg Trimethoprim/Sulfamethoxazole (Septra Ds) 1 tab PO ONETIME ONE Stop: 07/18/17 02:11 Last Admin: 07/18/17 02:19 Dose: 1 tab - Exam General: Alert, Oriented, Cooperative, No Acute Distress Neck: Supple Lungs: Clear to Auscultation, Normal Respiratory Effort Cardiovascular: Regular Rate Extremities: No Pedal Edema, Redness Skin: Warm, Dry Psy/Mental Status: Alert, Normal Affect - Problem List Review Problem List Initiated/Reviewed/Updated: Yes - Plan Plan:: ASSESSMENT AND PLAN CELLULITIS OF THE LEFT ARM WITH SEPSIS-cellulitis has improved. There is decreased redness in the upper arm but continues warm to touch without open areas. The region below her elbow continues with reddened areas and some swelling. Lactic acid 1.8 and WBC improved from 12.8 to 7.4. Discussion regarding lymph edema and ways to prevent recurrence of the cellulites. -Continue vancomycin, pharmacy to dose, pending culture results -Continue Zosyn 3.75 every 6 hourly -IV fluids discontinued converted line to saline lock -Blood cultures pending - no growth during first 24 hours TYPE 2 DIABETES MELLITUS -Sliding-scale insulin for diabetes -restart metformin CODE STATUS full code Diet consistent carbohydrate diet DVT prophylaxis Lovenox 40 subcutaneous daily <Power Cerda - Last Filed: 07/19/17 13:10> - Patient Data Vitals - Most Recent: Last Vital Signs Temp 97.6 F 07/19/17 10:47 Pulse 76 07/19/17 10:47 Resp 16 07/19/17 10:47 BP 147/87 H 07/19/17 10:47 Pulse Ox 95 07/19/17 10:47 I&O - Last 24 Hours: Intake & Output 07/18/17 07/19/17 07/19/17 22:59 06:59 14:59 Intake Total 2037 1161 850 Output Total 1900 1350 1950 Balance 137 -189 -1100 Lab Results Last 24 Hours: Laboratory Results - last 24 hr 07/18/17 07/19/17 07/19/17 Range/Units 19:15 04:50 04:50 WBC 7.4 (4.5-11.0) K/uL RBC 3.99 (3.30-5.50) M/uL Hgb 11.9 L (12.0-15.0) g/dL Hct 35.8 L (36.0-48.0) % MCV 90 (80-98) fL MCH 30 (27-31) pg MCHC 33 (32-36) % Plt Count 250 (150-400) K/uL Neut % (Auto) 59 (36-66) % Lymph % (Auto) 31 (24-44) % [place] % (Auto) 8 H (2-6) % Eos % (Auto) 1 L (2-4) % Baso % (Auto) 0 (0-1) % Sodium 138 L (140-148) mmol/L Potassium 3.9 (3.6-5.2) mmol/L Chloride 105 (100-108) mmol/L Carbon Dioxide 26 (21-32) mmol/L Anion Gap 10.9 (5.0-14.0) mmol/L BUN 8 (7-18) mg/dL Creatinine 0.7 (0.6-1.0) mg/dL Est Cr Clr Drug Dosing 76.78 mL/min Estimated GFR (MDRD) > 60 (>60) Glucose 196 H (74-106) mg/dL Lactic Acid 1.8 (0.7-2.1) mmol/L Calcium 8.1 L (8.5-10.1) mg/dL Magnesium 1.7 L (1.8-2.4) mg/dL Jonathan Results Last 24 Hours: Microbiology 07/18/17 02:20 Aerobic Blood Culture - Preliminary Blood - Arm, Right NO GROWTH AFTER 1 DAY Anaerobic Blood Culture - Preliminary NO GROWTH AFTER 1 DAY 07/18/17 01:35 Aerobic Blood Culture - Preliminary Blood - Venous - Iv Start NO GROWTH AFTER 1 DAY Anaerobic Blood Culture - Preliminary NO GROWTH AFTER 1 DAY Med Orders - Current: Current Medications Acetaminophen (Tylenol) 650 mg PO Q4H PRN PRN Reason: Pain (Mild 1-3)/fever Last Admin: 07/18/17 15:55 Dose: 650 mg Atorvastatin Calcium (Lipitor) 80 mg PO DAILY [facility] Last Admin: 07/19/17 08:19 Dose: 80 mg Enoxaparin Sodium (Lovenox) 40 mg SUBCUT DAILY [facility] Last Admin: 07/19/17 08:19 Dose: 40 mg Hydromorphone HCl (Dilaudid) 0.25 mg IVPUSH Q2H PRN PRN Reason: Pain Last Admin: 07/19/17 07:12 Dose: 0.25 mg Vancomycin HCl 1.25 gm/ Sodium (Chloride) 250 mls @ 250 mls/hr IV Q12H [facility] Last Admin: 07/19/17 08:15 Dose: 250 mls/hr Piperacillin/Tazobactam/ (Dextrose 3.375 gm/ Premix) 50 mls @ 100 mls/hr IV Q6H [facility] Last Admin: 07/19/17 10:38 Dose: 100 mls/hr Insulin Aspart (Novolog) 0 unit SUBCUT BIDAC [facility]; Protocol Last Admin: 07/19/17 08:15 Dose: Not Given Insulin Detemir (Levemir) 15 unit SUBCUT BEDTIME [facility] Last Admin: 07/18/17 22:11 Dose: 15 units Insulin Detemir (Levemir) 30 unit SUBCUT DAILY [facility] Last Admin: 07/19/17 08:20 Dose: 30 unit Lactobacillus Rhamnosus (Culturelle) 1 cap PO BID [facility] Last Admin: 07/19/17 10:38 Dose: 1 cap Liraglutide (Victoza) 1.2 mg SUBCUT DAILY [facility] Last Admin: 07/19/17 08:20 Dose: 1.2 mg Lisinopril (Prinivil) 5 mg PO DAILY [facility] Last Admin: 07/19/17 08:19 Dose: 5 mg Magnesium Oxide (Magnesium Oxide) 400 mg PO BID [facility] Last Admin: 07/19/17 10:38 Dose: 400 mg Ondansetron HCl (Zofran Odt) 4 mg PO Q6H PRN PRN Reason: Nausea able to take PO Last Admin: 07/19/17 12:54 Dose: 4 mg Pantoprazole Sodium (Protonix) 40 mg PO ACBREAKFAST [facility] Last Admin: 07/19/17 07:19 Dose: 40 mg Discontinued Medications Acetaminophen (Tylenol Extra Strength) 1,000 mg PO ONETIME ONE Stop: 07/18/17 01:26 Last Admin: 07/18/17 01:44 Dose: 1,000 mg Diphtheria/Tetanus/Acell Pertussis (Adacel) 0.5 ml IM .ONCE ONE Stop: 07/18/17 10:01 Last Admin: 07/18/17 09:11 Dose: 0.5 ml Lactated Ringer's (Ringers, Lactated) 1,000 mls @ 1,000 mls/hr IV BOLUS ONE Stop: 07/18/17 02:23 Last Admin: 07/18/17 01:44 Dose: 1,000 mls/hr Clindamycin Phosphate 900 mg/ (Sodium Chloride) 106 mls @ 200 mls/hr IV ONETIME ONE Stop: 07/18/17 02:41 Last Admin: 07/18/17 02:19 Dose: 200 mls/hr Piperacillin Sod/Tazobactam (Sod 3.375 gm/ Sodium Chloride) 50 mls @ 100 mls/ hr IV Q6H [facility] Last Admin: 07/18/17 03:47 Dose: Not Given Piperacillin Sod/Tazobactam (Sod 3.375 gm/ Sodium Chloride) 50 mls @ 100 mls/ hr IV NOW STA Stop: 07/18/17 04:15 Last Admin: 07/18/17 03:57 Dose: 100 mls/hr Piperacillin Sod/Tazobactam (Sod 3.375 gm/ Sodium Chloride) 50 mls @ 100 mls/ hr IV Q6H [facility] Lactated Ringer's (Ringers, Lactated) 1,000 mls @ 125 mls/hr IV ASDIRECTED [facility] Last Admin: 07/19/17 11:43 Dose: 125 mls/hr Lactated Ringer's (Ringers, Lactated) 1,000 mls @ 500 mls/hr IV ASDIRECTED [facility] Stop: 07/18/17 13:31 Last Admin: 07/18/17 08:39 Dose: 500 mls/hr Magnesium Sulfate 2 gm/ Premix 50 mls @ 25 mls/hr IV ONETIME ONE Stop: 07/19/17 12:29 Last Admin: 07/19/17 11:44 Dose: 25 mls/hr Insulin Aspart (Novolog) Confirm Administered Dose 300 unit .ROUTE .STK-MED ONE Stop: 07/18/17 09:20 Last Admin: 07/18/17 11:22 Dose: Not Given Insulin Human Lispro (Humalog) 0 unit SUBCUT BIDAC [facility]; Protocol Last Admin: 07/18/17 12:24 Dose: Not Given Metformin HCl (Glucophage) 500 mg PO ONETIME ONE Stop: 07/19/17 12:45 Last Admin: 07/19/17 12:52 Dose: 500 mg Pantoprazole Sodium (Protonix) 40 mg PO ACBREAKFAST [facility] Last Admin: 07/18/17 08:45 Dose: 40 mg Trimethoprim/Sulfamethoxazole (Septra Ds) 1 tab PO ONETIME ONE Stop: 07/18/17 02:11 Last Admin: 07/18/17 02:19 Dose: 1 tab - My Orders Last 24 Hours: My Active Orders 07/18/17 13:00 Insulin Detemir [Levemir] 30 unit SUBCUT DAILY Liraglutide [Victoza] 1.2 mg SUBCUT DAILY Lisinopril [Prinivil] 5 mg PO DAILY Pantoprazole [ProTONIX] 40 mg PO ACBREAKFAST atorvaSTATin [Lipitor] 80 mg PO DAILY 07/18/17 16:45 HYDROmorphone [Dilaudid] 0.25 mg IVPUSH Q2H PRN 07/19/17 10:00 Lactobacillus Rhamnosus GG [Culturelle] 1 cap PO BID Magnesium Oxide 400 mg PO BID 07/19/17 16:30 GLUCOSE POC LAB TO COLLECT [POC] QIDACANDBED 07/19/17 21:00 GLUCOSE POC LAB TO COLLECT [POC] QIDACANDBED 07/20/17 08:30 VANCOMYCIN TROUGH [CHEM] Routine
[2017-07-19] MEDS ORDERED: metFORMIN 500 MG Tab PO ONE (12:44)
[2017-07-20] MEDS: HYDROmorphone 0.5 MG/0.5 ML Syringe IVPUSH PRN (01:45)
[2017-07-20] MEDS: Piperacillin/Tazobactam/Dext 3.375 GM in Premix Bag 1 BAG IV SCH ×4 (05:06→22:31)
[2017-07-20] MEDS: Insulin Aspart 100 Units/ML 3 ML Pen SUBCUT SCH (07:47)
[2017-07-20] MEDS: Pantoprazole 40 MG Tab.CR PO SCH (07:51)
[2017-07-20] MEDS: atorvaSTATin 20 MG Tab PO SCH (08:01)
[2017-07-20] MEDS: Lactobacillus Rhamnosus GG (Probiotic) Cap PO SCH ×2 (08:01→21:45)
[2017-07-20] MEDS: Magnesium Oxide 400 MG Tab PO SCH ×2 (08:03→21:46)
[2017-07-20] MEDS: Liraglutide (rDNA Origin) 0.6 MG/0.1 ML 3 ML Pen SUBCUT SCH (08:05)
[2017-07-20] MEDS: Enoxaparin 40 MG/0.4 ML Syringe SUBCUT SCH (08:08)
[2017-07-20] MEDS: Insulin Detemir 100 Units/ML 3 ML Pen SUBCUT SCH ×2 (08:08→21:45)
[2017-07-20] MEDS: Lisinopril 5 MG Tab PO SCH (08:11)
--- NOTE | 2017-07-20 10:50 | PCM.PN ---
- General Info Date of Service: 07/20/17 Admission Dx/Problem (Free Text): Cellulitis of Left arm Subjective Update: Ms. Campbell states she is feeling much better today. Patient states that she did sleep better than the previous nights sleep, she feels more rested. Patient feels the her arm is closer to her baseline. Functional Status: Reports: Pain Controlled, Tolerating Diet, Ambulating, Urinating - Review of Systems General: Reports: No Symptoms HEENT: Reports: No Symptoms Pulmonary: Reports: No Symptoms. Denies: Shortness of Breath Cardiovascular: Reports: No Symptoms. Denies: Chest Pain Gastrointestinal: Reports: No Symptoms. Denies: Abdominal Pain, Constipation, Diarrhea Genitourinary: Reports: No Symptoms Musculoskeletal: Reports: Shoulder Pain Skin: Denies: Pruritis Neurological: Reports: No Symptoms Psychiatric: Reports: No Symptoms - Patient Data Vitals - Most Recent: Last Vital Signs Temp 36.8 C 07/20/17 07:00 Pulse 85 07/20/17 07:00 Resp 18 07/20/17 07:00 BP 125/68 07/20/17 08:11 Pulse Ox 95 07/20/17 07:00 Weight - Most Recent: 79.651 kg I&O - Last 24 Hours: Intake & Output 07/19/17 07/20/17 07/20/17 22:59 06:59 14:59 Intake Total 840 300 250 Output Total 1300 1400 1000 Balance -460 -1100 -750 Lab Results Last 24 Hours: Laboratory Results - last 24 hr 07/20/17 Range/Units 08:14 Vancomycin Trough 8.9 L (10.0-20.0) ug/mL Jonathan Results Last 24 Hours: Microbiology 07/18/17 02:20 Aerobic Blood Culture - Preliminary Blood - Arm, Right NO GROWTH AFTER 2 DAYS Anaerobic Blood Culture - Preliminary NO GROWTH AFTER 2 DAYS 07/18/17 01:35 Aerobic Blood Culture - Preliminary Blood - Venous - Iv Start NO GROWTH AFTER 2 DAYS Anaerobic Blood Culture - Preliminary NO GROWTH AFTER 2 DAYS Med Orders - Current: Current Medications Acetaminophen (Tylenol) 650 mg PO Q4H PRN PRN Reason: Pain (Mild 1-3)/fever Last Admin: 07/18/17 15:55 Dose: 650 mg Atorvastatin Calcium (Lipitor) 80 mg PO DAILY [facility] Last Admin: 07/20/17 08:01 Dose: 80 mg Enoxaparin Sodium (Lovenox) 40 mg SUBCUT DAILY [facility] Last Admin: 07/20/17 08:08 Dose: 40 mg Hydromorphone HCl (Dilaudid) 0.25 mg IVPUSH Q2H PRN PRN Reason: Pain Last Admin: 07/20/17 01:45 Dose: 0.25 mg Piperacillin/Tazobactam/ (Dextrose 3.375 gm/ Premix) 50 mls @ 100 mls/hr IV Q6H [facility] Last Admin: 07/20/17 05:06 Dose: 100 mls/hr Vancomycin HCl 1.5 gm/ Sodium (Chloride) 250 mls @ 167 mls/hr IV Q12H [facility] Last Admin: 07/20/17 09:56 Dose: 167 mls/hr [facility] Protocol Last Admin: 07/20/17 07:47 Dose: Not Given Insulin Detemir (Levemir) 15 unit SUBCUT BEDTIME [facility] Last Admin: 07/19/17 20:49 Dose: 15 units Insulin Detemir (Levemir) 30 unit SUBCUT DAILY [facility] Last Admin: 07/20/17 08:08 Dose: 30 unit Lactobacillus Rhamnosus (Culturelle) 1 cap PO BID [facility] Last Admin: 07/20/17 08:01 Dose: 1 cap Liraglutide (Victoza) 1.2 mg SUBCUT DAILY [facility] Last Admin: 07/20/17 08:05 Dose: 1.2 mg Lisinopril (Prinivil) 5 mg PO DAILY [facility] Last Admin: 07/20/17 08:11 Dose: 5 mg Magnesium Oxide (Magnesium Oxide) 400 mg PO BID [facility] Last Admin: 07/20/17 08:03 Dose: 400 mg Ondansetron HCl (Zofran Odt) 4 mg PO Q6H PRN PRN Reason: Nausea able to take PO Last Admin: 07/19/17 12:54 Dose: 4 mg Pantoprazole Sodium (Protonix) 40 mg PO ACBREAKFAST [facility] Last Admin: 07/20/17 07:51 Dose: 40 mg Discontinued Medications Acetaminophen (Tylenol Extra Strength) 1,000 mg PO ONETIME ONE Stop: 07/18/17 01:26 Last Admin: 07/18/17 01:44 Dose: 1,000 mg Diphtheria/Tetanus/Acell Pertussis (Adacel) 0.5 ml IM .ONCE ONE Stop: 07/18/17 10:01 Last Admin: 07/18/17 09:11 Dose: 0.5 ml Lactated Ringer's (Ringers, Lactated) 1,000 mls @ 1,000 mls/hr IV BOLUS ONE Stop: 07/18/17 02:23 Last Admin: 07/18/17 01:44 Dose: 1,000 mls/hr Clindamycin Phosphate 900 mg/ (Sodium Chloride) 106 mls @ 200 mls/hr IV ONETIME ONE Stop: 07/18/17 02:41 Last Admin: 07/18/17 02:19 Dose: 200 mls/hr Piperacillin Sod/Tazobactam (Sod 3.375 gm/ Sodium Chloride) 50 mls @ 100 mls/ hr IV Q6H [facility] Last Admin: 07/18/17 03:47 Dose: Not Given Piperacillin Sod/Tazobactam (Sod 3.375 gm/ Sodium Chloride) 50 mls @ 100 mls/ hr IV NOW STA Stop: 07/18/17 04:15 Last Admin: 07/18/17 03:57 Dose: 100 mls/hr Piperacillin Sod/Tazobactam (Sod 3.375 gm/ Sodium Chloride) 50 mls @ 100 mls/ hr IV Q6H [facility] Lactated Ringer's (Ringers, Lactated) 1,000 mls @ 125 mls/hr IV ASDIRECTED [facility] Last Admin: 07/19/17 11:43 Dose: 125 mls/hr Lactated Ringer's (Ringers, Lactated) 1,000 mls @ 500 mls/hr IV ASDIRECTED [facility] Stop: 07/18/17 13:31 Last Admin: 07/18/17 08:39 Dose: 500 mls/hr Vancomycin HCl 1.25 gm/ Sodium (Chloride) 250 mls @ 250 mls/hr IV Q12H [facility] Last Admin: 07/19/17 20:48 Dose: 250 mls/hr Magnesium Sulfate 2 gm/ Premix 50 mls @ 25 mls/hr IV ONETIME ONE Stop: 07/19/17 12:29 Last Admin: 07/19/17 11:44 Dose: 25 mls/hr Insulin Aspart (Novolog) Confirm Administered Dose 300 unit .ROUTE .STK-MED ONE Stop: 07/18/17 09:20 Last Admin: 07/18/17 11:22 Dose: Not Given Insulin Human Lispro (Humalog) 0 unit SUBCUT BIDAC [facility]; Protocol Last Admin: 07/18/17 12:24 Dose: Not Given Metformin HCl (Glucophage) 500 mg PO ONETIME ONE Stop: 07/19/17 12:45 Last Admin: 07/19/17 12:52 Dose: 500 mg Pantoprazole Sodium (Protonix) 40 mg PO ACBREAKFAST [facility] Last Admin: 07/18/17 08:45 Dose: 40 mg Trimethoprim/Sulfamethoxazole (Septra Ds) 1 tab PO ONETIME ONE Stop: 07/18/17 02:11 Last Admin: 07/18/17 02:19 Dose: 1 tab - Exam Quality Assessment: DVT Prophylaxis General: Alert, Oriented, Cooperative, No Acute Distress HEENT: Pupils Equal Neck: Supple Lungs: Clear to Auscultation, Normal Respiratory Effort Cardiovascular: Regular Rate GI/Abdominal Exam: Normal Bowel Sounds, Soft, Non-Tender Extremities: Non-Tender, Other (arm improving - without redness or warm to touch upper left extremity. mild inflammation remains below the left elbow ) - Problem List Review Problem List Initiated/Reviewed/Updated: Yes - My Orders Last 24 Hours: My Active Orders 07/19/17 11:51 Convert IV to Saline Lock [OM.PC] Routine - Plan Plan:: ASSESSMENT AND PLAN CELLULITIS OF THE LEFT ARM WITH SEPSIS-cellulitis has improved. There is no redness in the upper arm and no longer warm to touch. Patient continues without open areas and the region below her elbow is much improved without reddened areas and and only minor inflammation noted. Discussion continues regarding lymph edema and the use of pump regularly to prevent recurrence of the cellulitis. -discontinue vancomycin -continue Zosyn -plan to start oral cephalexin at discharge -IV saline lock -Blood cultures pending - no growth during first 48 hours TYPE 2 DIABETES MELLITUS -Sliding-scale insulin for diabetes -continue metformin CODE STATUS full code Diet consistent carbohydrate diet DVT prophylaxis Lovenox 40 subcutaneous daily Disposition: plan for discharge to home tomorrow with referral to lymphedema specialist in [facility] (previously seen) for further recommendations
[2017-07-20] MEDS ORDERED: Glucose Gel 15 GM in 37.5 GM Tube PO PRN (13:24)
[2017-07-20] MEDS ORDERED: Glucagon,Human Recombinant 1 MG Vial IM PRN (13:24)
[2017-07-20] MEDS ORDERED: 50% Dextrose in Water 50 ML Syringe IVPUSH PRN (13:24)
[2017-07-20] MEDS: Insulin Aspart 100 Units/ML 3 ML Pen SUBCUT PRN ×3 (13:29→21:47)
[2017-07-21] MEDS ORDERED: Cephalexin 250 MG Cap PO SCH ×3 (01:00→09:00)
[2017-07-21] MEDS: Piperacillin/Tazobactam/Dext 3.375 GM in Premix Bag 1 BAG IV SCH (06:43)
[2017-07-21] MEDS: Pantoprazole 40 MG Tab.CR PO SCH (07:22)
[2017-07-21] MEDS: Insulin Aspart 100 Units/ML 3 ML Pen SUBCUT PRN ×2 (07:52→11:36)
[2017-07-21] MEDS: Enoxaparin 40 MG/0.4 ML Syringe SUBCUT SCH (08:58)
[2017-07-21] MEDS: Insulin Detemir 100 Units/ML 3 ML Pen SUBCUT SCH (08:59)
[2017-07-21] MEDS: atorvaSTATin 20 MG Tab PO SCH (08:59)
[2017-07-21] MEDS: Lactobacillus Rhamnosus GG (Probiotic) Cap PO SCH (09:00)
[2017-07-21] MEDS: Magnesium Oxide 400 MG Tab PO SCH (09:00)
[2017-07-21] MEDS: Lisinopril 5 MG Tab PO SCH (09:00)
[2017-07-21] MEDS: Liraglutide (rDNA Origin) 0.6 MG/0.1 ML 3 ML Pen SUBCUT SCH (09:02)
[2017-07-21 11:02] VITALS: BP 170/87
--- NOTE | 2017-07-21 11:07 | PCM.DCSUM1 ---
Discharge Summary - Hospital Course Brief History: Ms. Campbell is a 61-year-old woman who was admitted through the emergency department with relatively abrupt onset of erythema and swelling of the left arm, secondary to cellulitis. Diagnosis: Stroke: No - Discharge Data Discharge Date: 07/21/17 Discharge Disposition: Home, Self-Care 01 Condition: Fair - Discharge Diagnosis/Problem(s) (1) Cellulitis of left arm SNOMED Code(s): 745504402 ICD Code: L03.114 - CELLULITIS OF LEFT UPPER LIMB Status: Acute Current Visit: Yes (2) Lymphedema of left arm SNOMED Code(s): 66384459488149798 ICD Code: I89.0 - LYMPHEDEMA, NOT ELSEWHERE CLASSIFIED Status: Acute Current Visit: Yes (3) Type 2 diabetes mellitus SNOMED Code(s): 94438573 ICD Code: E11.9 - TYPE 2 DIABETES MELLITUS WITHOUT COMPLICATIONS Status: Chronic Current Visit: No - Patient Summary/Data Consults: Consultations 07/18/17 03:32 Pharmacy Consult [Consult to Pharmacy] [CONS] Routine Comment: zosyn dosing Physician Instructions: Quantity: Hospital Course: Ms. Campbell is a 61-year-old woman who was admitted with abrupt onset of erythema of the left arm as well as fever. She has a known history of type 2 diabetes mellitus as well as lymphedema of the left arm secondary to previous mastectomy and axillary lymph node dissection. She's had previous episodes of cellulitis involving the arm. Symptoms began at approximately 9 PM on the evening prior to admission and progressed rapidly to where she was experiencing fever chills and progressive weakness with erythema the left arm. She presented to the emergency room early on the morning of admission, blood cultures were obtained and she was started on IV antibiotic therapy with Zosyn. Since admission vancomycin was also been started and she has received IV fluids per sepsis protocol. On evaluation she was found to be tachycardic and lactic acid level was elevated at 2.8. She was given vigorous IV fluid replacement and lactic acid level normalized. Over the next few days of hospitalization there was total resolution of cellulitis and marked improvement of edema of the arm. Glucometer levels were obtained regularly and she was given sliding scale NovoLog for management of her diabetes, which remained under relatively good control during hospitalization. Follow-up appointment will be scheduled with occupational therapy and [facility] for ongoing management of her lymphedema. Follow- up appointment is already been arranged with Dr. Luis for early this next week. She will be discharged home on cephalexin 500 mg 3 times daily for the next 4 days. Activity will be as tolerated and she will resume her usual diabetic diet. - Patient Instructions Diet: Usual Diet as Tolerated, Diabetic Diet Activity: As Tolerated Other/Special Instructions: Patient already has follow-up appointment scheduled with Dr. Luis for July 24. Please arrange for follow-up appointment with occupational therapy in [facility] for ongoing management of lymphedema of the left arm. - Discharge Plan Prescriptions/Med Rec: Cephalexin 500 mg PO Q8H #12 capsule Lactobacillus Rhamnosus GG [Culturelle] 1 cap PO BID #30 cap Home Medications: Home Meds Insulin Glarg,Human.Rec.Analog [Lantus] 30 unit SQ DAILY 05/05/13 [History] Lisinopril 5 mg PO DAILY 05/05/13 [History] Omeprazole 40 mg PO DAILY 05/05/13 [History] atorvaSTATin Calcium [Atorvastatin Calcium] 80 mg PO DAILY 05/05/13 [History] metFORMIN [Glucophage] 500 mg PO DAILY 05/05/13 [History] Liraglutide [Victoza] 1.2 mg SQ DAILY 08/13/16 [History] Cephalexin 500 mg PO Q8H #12 capsule 07/21/17 [Rx] Lactobacillus Rhamnosus GG [Culturelle] 1 cap PO BID #30 cap 07/21/17 [Rx] Referrals: Lalo Luis MD [Physician] - 07/24/17 2:00 pm - Discharge Summary/Plan Comment DC Time >30 min.: No - Patient Data Vitals - Most Recent: Last Vital Signs Temp 97.5 F 07/21/17 11:01 Pulse 88 07/21/17 11:01 Resp 16 07/21/17 11:01 BP 170/87 H 07/21/17 11:01 Pulse Ox 98 07/21/17 11:01 Weight - Most Recent: 175 lb 9.606 oz I&O - Last 24 hours: Intake & Output 07/20/17 07/21/17 07/21/17 22:59 06:59 14:59 Intake Total 50 1200 Output Total 700 1000 Balance -650 200 ZAIRA Results - Last 24 hrs: Microbiology 07/18/17 02:20 Aerobic Blood Culture - Preliminary Blood - Arm, Right NO GROWTH AFTER 3 DAYS Anaerobic Blood Culture - Preliminary NO GROWTH AFTER 3 DAYS 07/18/17 01:35 Aerobic Blood Culture - Preliminary Blood - Venous - Iv Start NO GROWTH AFTER 3 DAYS Anaerobic Blood Culture - Preliminary NO GROWTH AFTER 3 DAYS Med Orders - Current: Current Medications Acetaminophen (Tylenol) 650 mg PO Q4H PRN PRN Reason: Pain (Mild 1-3)/fever Last Admin: 07/18/17 15:55 Dose: 650 mg Atorvastatin Calcium (Lipitor) 80 mg PO DAILY [facility] Last Admin: 07/21/17 08:59 Dose: 80 mg Cephalexin (Keflex) 500 mg PO Q8H [facility] Last Admin: 07/21/17 08:59 Dose: 500 mg Dextrose (Glutose 15) 15 gm PO ASDIRECTED PRN PRN Reason: HYPOGLYCEMIA Enoxaparin Sodium (Lovenox) 40 mg SUBCUT DAILY [facility] Last Admin: 07/21/17 08:58 Dose: 40 mg Glucagon (Glucagen) 1 mg IM ASDIRECTED PRN PRN Reason: HYPOGLYCEMIA Insulin Aspart (Novolog) 0 unit SUBCUT QID PRN; Protocol PRN Reason: LOW CORRECTIONAL DOSE Last Admin: 07/21/17 07:52 Dose: 2 unit Insulin Detemir (Levemir) 15 unit SUBCUT BEDTIME [facility] Last Admin: 07/20/17 21:45 Dose: 15 units Insulin Detemir (Levemir) 30 unit SUBCUT DAILY [facility] Last Admin: 07/21/17 08:59 Dose: 30 unit Lactobacillus Rhamnosus (Culturelle) 1 cap PO BID [facility] Last Admin: 07/21/17 09:00 Dose: 1 cap Liraglutide (Victoza) 1.2 mg SUBCUT DAILY [facility] Last Admin: 07/21/17 09:02 Dose: 1.2 mg Lisinopril (Prinivil) 5 mg PO DAILY [facility] Last Admin: 07/21/17 09:00 Dose: 5 mg Magnesium Oxide (Magnesium Oxide) 400 mg PO BID [facility] Last Admin: 07/21/17 09:00 Dose: 400 mg Pantoprazole Sodium (Protonix) 40 mg PO ACBREAKFAST [facility] Last Admin: 07/21/17 07:22 Dose: 40 mg Discontinued Medications Acetaminophen (Tylenol Extra Strength) 1,000 mg PO ONETIME ONE Stop: 07/18/17 01:26 Last Admin: 07/18/17 01:44 Dose: 1,000 mg Cephalexin (Keflex) 500 mg PO Q8HR [facility] Last Admin: 07/21/17 01:12 Dose: 500 mg Dextrose/Water (Dextrose 50% In Water) 50 ml IVPUSH ASDIRECTED PRN PRN Reason: HYPOGLYCEMIA Diphtheria/Tetanus/Acell Pertussis (Adacel) 0.5 ml IM .ONCE ONE Stop: 07/18/17 10:01 Last Admin: 07/18/17 09:11 Dose: 0.5 ml Hydromorphone HCl (Dilaudid) 0.25 mg IVPUSH Q2H PRN PRN Reason: Pain Last Admin: 07/20/17 01:45 Dose: 0.25 mg Lactated Ringer's (Ringers, Lactated) 1,000 mls @ 1,000 mls/hr IV BOLUS ONE Stop: 07/18/17 02:23 Last Admin: 07/18/17 01:44 Dose: 1,000 mls/hr Clindamycin Phosphate 900 mg/ (Sodium Chloride) 106 mls @ 200 mls/hr IV ONETIME ONE Stop: 07/18/17 02:41 Last Admin: 07/18/17 02:19 Dose: 200 mls/hr Piperacillin Sod/Tazobactam (Sod 3.375 gm/ Sodium Chloride) 50 mls @ 100 mls/ hr IV Q6H [facility] Last Admin: 07/18/17 03:47 Dose: Not Given Piperacillin Sod/Tazobactam (Sod 3.375 gm/ Sodium Chloride) 50 mls @ 100 mls/ hr IV NOW STA Stop: 07/18/17 04:15 Last Admin: 07/18/17 03:57 Dose: 100 mls/hr Piperacillin Sod/Tazobactam (Sod 3.375 gm/ Sodium Chloride) 50 mls @ 100 mls/ hr IV Q6H [facility] Lactated Ringer's (Ringers, Lactated) 1,000 mls @ 125 mls/hr IV ASDIRECTED [facility] Last Admin: 07/19/17 11:43 Dose: 125 mls/hr Lactated Ringer's (Ringers, Lactated) 1,000 mls @ 500 mls/hr IV ASDIRECTED [facility] Stop: 07/18/17 13:31 Last Admin: 07/18/17 08:39 Dose: 500 mls/hr Vancomycin HCl 1.25 gm/ Sodium (Chloride) 250 mls @ 250 mls/hr IV Q12H [facility] Last Admin: 07/19/17 20:48 Dose: 250 mls/hr Piperacillin/Tazobactam/ (Dextrose 3.375 gm/ Premix) 50 mls @ 100 mls/hr IV Q6H [facility] Last Admin: 07/21/17 06:43 Dose: Not Given Magnesium Sulfate 2 gm/ Premix 50 mls @ 25 mls/hr IV ONETIME ONE Stop: 07/19/17 12:29 Last Admin: 07/19/17 11:44 Dose: 25 mls/hr Vancomycin HCl 1.5 gm/ Sodium (Chloride) 250 mls @ 167 mls/hr IV Q12H [facility] Last Admin: 07/20/17 09:56 Dose: 167 mls/hr Insulin Aspart (Novolog) 0 unit SUBCUT BIDAC [facility]; Protocol Last Admin: 07/20/17 07:47 Dose: Not Given Insulin Aspart (Novolog) Confirm Administered Dose 300 unit .ROUTE .STK-MED ONE Stop: 07/18/17 09:20 Last Admin: 07/18/17 11:22 Dose: Not Given Insulin Human Lispro (Humalog) 0 unit SUBCUT BIDAC [facility]; Protocol Last Admin: 07/18/17 12:24 Dose: Not Given Metformin HCl (Glucophage) 500 mg PO ONETIME ONE Stop: 07/19/17 12:45 Last Admin: 07/19/17 12:52 Dose: 500 mg Ondansetron HCl (Zofran Odt) 4 mg PO Q6H PRN PRN Reason: Nausea able to take PO Last Admin: 07/19/17 12:54 Dose: 4 mg Pantoprazole Sodium (Protonix) 40 mg PO ACBREAKFAST [facility] Last Admin: 07/18/17 08:45 Dose: 40 mg Trimethoprim/Sulfamethoxazole (Septra Ds) 1 tab PO ONETIME ONE Stop: 07/18/17 02:11 Last Admin: 07/18/17 02:19 Dose: 1 tab - Exam General: Reports: Alert, Oriented, Cooperative, No Acute Distress Lungs: Reports: Clear to Auscultation, Normal Respiratory Effort Cardiovascular: Reports: Regular Rate, Regular Rhythm GI/Abdominal Exam: Soft, Non-Tender, No Organomegaly, No Distention Extremities: Non-Tender, No Pedal Edema Skin: Reports: Other (Resolution of cellulitis of the left arm)
== END 2017-07-21 11:45 | disposition home or self-care (01) | DRG 872 ==
LOC: JP.ED 00:51 → JP.MS 04:30 → OBSVTOIN 11:51
PROVIDERS: ADMIT Family Medicine; ATTEND Hospitalist
DX: A41.9 Sepsis, unspecified organism (principal); L03.114 Cellulitis of left upper limb; I97.2 Postmastectomy lymphedema syndrome; E11.40 Type 2 diabetes mellitus with diabetic neuropathy, unspecified; Z79.4 Long term (current) use of insulin; I10 Essential (primary) hypertension; Z85.3 Personal history of malignant neoplasm of breast; K21.9 Gastro-esophageal reflux disease without esophagitis; E78.5 Hyperlipidemia, unspecified; H54.7 Unspecified visual loss; Z98.890 Other specified postprocedural states; Z88.8 Allergy status to other drugs, medicaments and biological substances; Z90.12 Acquired absence of left breast and nipple; K22.2 Esophageal obstruction
CPT/HCPCS: 36415; 80048; 80202; 81001; 82962; 83605; 83735; 85025; 85027; 87040; 90715; 96361; 96365; 96367; 99284-25; A9270-GY; J1170; J1650; J2543; J3370; J3475; J7030; J7050; J7120; S0077

== ENCOUNTER 2018-07-26 10:45 | Inpatient (IN) | payer MEDICAID ==
[2018-07-26] MEDS ORDERED: Ibuprofen 400 MG Tab PO ONE (12:00)
[2018-07-26] MEDS ORDERED: Sodium Chloride 0.9% 1,000 ML IV SCH (12:00)
--- NOTE | 2018-07-26 12:06 | EDM.PDOC ---
ED HPI GENERAL MEDICAL PROBLEM - General Chief Complaint: Skin Complaint Stated Complaint: CELULITOUS Time Seen by Provider: 07/26/18 11:18 Source of Information: Reports: Patient History Limitations: Reports: No Limitations - History of Present Illness INITIAL COMMENTS - FREE TEXT/NARRATIVE: 63 yo female presents with left arm pain, burning edema and redness. 12 hours ago fever, chills, and body aches. She does report multiple mosquito bites to her arm but can not recall wound. headache and fatigue. Denies CP, SOB, n/v/d - Related Data Allergies Allergy/AdvReac Type Severity Reaction Status Date / Time propoxyphene [From Darvon] Allergy Nausea and Verified 07/26/18 12:22 Vomiting acetaminophen [From Vicodin] AdvReac Vomiting Verified 07/26/18 12:22 hydrocodone bitartrate AdvReac Vomiting Verified 07/26/18 12:22 [From Vicodin] morphine AdvReac Vomiting Verified 07/26/18 12:22 oxycodone HCl [From Percodan] AdvReac Vomiting Verified 07/26/18 12:22 oxycodone terephthalate AdvReac Vomiting Verified 07/26/18 12:22 [From Percodan] pentazocine lactate AdvReac Vomiting Verified 07/26/18 12:22 [From Talwin] Home Meds: Home Meds Insulin Glarg,Human.Rec.Analog [Lantus] 32 unit SQ DAILY 05/05/13 [History] Liraglutide [Victoza] 1.2 mg SQ DAILY 08/13/16 [History] Lactobacillus Rhamnosus GG [Culturelle] 1 cap PO BID #30 cap 07/21/17 [Rx] Past Medical History HEENT History: Reports: Impaired Vision Other HEENT History: throat narrows and needs dilations done Cardiovascular History: Reports: High Cholesterol, Hypertension Gastrointestinal History: Reports: Colon Polyp, Diverticulosis, GERD SHOT EXAMINER History: Reports: Musculoskeletal History: Reports: Arthritis Neurological History: Reports: Neuropathy, Diabetic Psychiatric History: Reports: Depression Endocrine/Metabolic History: Reports: Diabetes, Type II Oncologic (Cancer) History: Reports: Breast Dermatologic History: Reports: Cellulitis - Infectious Disease History Infectious Disease History: Reports: Chicken Pox, Shingles - Past Surgical History GI Surgical History: Reports: Cholecystectomy, Colonoscopy, EGD, Esophageal Dilatation Female Surgical History: Reports: Tubal Ligation Neurological Surgical History: Reports: C-Spine Musculoskeletal Surgical History: Reports: Shoulder Surgery Other Musculoskeletal Surgeries/Procedures:: rotator cuff right x2 Social & Family History - Family History Family Medical History: Noncontributory - Caffeine Use Caffeine Use: Reports: Soda Other Caffeine Use: 32 oz per day ED ROS GENERAL - Review of Systems Review Of Systems: See Below Constitutional: Reports: Fever, Chills, Malaise HEENT: Denies: Sinus Problem Respiratory: Denies: Shortness of Breath, Wheezing Cardiovascular: Denies: Chest Pain GI/Abdominal: Denies: Abdominal Pain ED EXAM, SKIN/RASH Exam: See Below Exam Limited By: No Limitations General Appearance: Alert, WD/WN, No Apparent Distress Neck: Normal Inspection, Supple, Non-Tender, Full Range of Motion Respiratory/Chest: No Respiratory Distress, Lungs Clear, Normal Breath Sounds, No Accessory Muscle Use, Chest Non-Tender Cardiovascular: No JVD, No Murmur, No Rub, Tachycardia GI/Abdominal: Normal Bowel Sounds, Soft, Non-Tender, No Distention Back Exam: Normal Inspection, Full Range of Motion. No: CVA Tenderness (R), CVA Tenderness (L) Neurological: Alert, Oriented, Normal Cognition, Normal Gait Skin: Warm, Dry, Intact Location, Skin: Upper Extremity, Left Characteristics: Other (warm to the touch erythemic with mild edema from wrist through upper arm. no wound or vector site) Course - Vital Signs Last Recorded V/S: Last Vital Signs Temp 36.9 C 07/26/18 12:29 Pulse 108 H 07/26/18 12:29 Resp 13 07/26/18 12:29 BP 164/85 H 07/26/18 12:29 Pulse Ox 95 07/26/18 12:29 - Orders/Labs/Meds Orders: Active Orders 24 hr Category Date Time Status CULTURE BLOOD [BC] Urgent Lab 07/26/18 12:20 Received CULTURE BLOOD [BC] Urgent Lab 07/26/18 12:25 Received Sodium Chloride 0.9% [Normal Saline] 1,000 ml Med 07/26/18 12:00 Active IV ASDIRECTED Blood Culture x2 Reflex Set [OM.PC] Urgent Oth 07/26/18 11:59 Ordered Medication Orders Sodium Chloride (Normal Saline) 1,000 mls @ 500 mls/hr IV ASDIRECTED [facility] Last Admin: 07/26/18 12:15 Dose: 500 mls/hr Labs: Laboratory Tests 07/26/18 07/26/18 07/26/18 Range/Units 12:27 12:27 12:27 WBC 13.7 H (4.5-11.0) K/uL RBC 4.65 (3.30-5.50) M/uL Hgb 13.7 (12.0-15.0) g/dL Hct 41.5 (36.0-48.0) % MCV 89 (80-98) fL MCH 30 (27-31) pg MCHC 33 (32-36) % Plt Count 270 (150-400) K/uL Neut % (Auto) 87 H (36-66) % Lymph % (Auto) 9 L (24-44) % [place] % (Auto) 4 (2-6) % Eos % (Auto) 0 L (2-4) % Baso % (Auto) 0 (0-1) % Sodium 138 L (140-148) mmol/L Potassium 3.9 (3.6-5.2) mmol/L Chloride 103 (100-108) mmol/L Carbon Dioxide 27 (21-32) mmol/L Anion Gap 11.9 (5.0-14.0) mmol/L BUN 15 D (7-18) mg/dL Creatinine 0.7 (0.6-1.0) mg/dL Est Cr Clr Drug Dosing 74.98 mL/min Estimated GFR (MDRD) > 60 (>60) Glucose 272 H (74-106) mg/dL Lactic Acid 2.1 H (0.4-2.0) mmol/L Calcium 9.2 (8.5-10.1) mg/dL Meds: Medications Generic Name Dose Route Start Last Admin Trade Name Freq PRN Reason Stop Dose Admin Sodium Chloride 1,000 mls @ 500 mls/hr 07/26/18 12:00 07/26/18 12:15 Normal Saline IV 500 mls/hr ASDIRECTED [facility]ITAN Administration Discontinued Medications Generic Name Dose Route Start Last Admin Trade Name Freq PRN Reason Stop Dose Admin Clindamycin Phosphate 300 mg/ 52 mls @ 150 mls/hr 07/26/18 12:01 07/26/18 12: 14 Sodium Chloride IV 07/26/18 12:21 150 mls/hr ONETIME ONE Administration Ibuprofen 400 mg 07/26/18 12:00 07/26/18 12:14 Motrin PO 07/26/18 12:01 400 mg ONETIME ONE Administration Metoclopramide HCl 5 mg 07/26/18 12:39 Reglan IVPUSH 07/26/18 12:40 ONETIME ONE - Re-Assessments/Exams Free Text/Narrative Re-Assessment/Exam: 07/26/18 14:12 elevated WBC and lactic acid. pt continues to feel "just awful" discussed with Dr. Norman and she will be admitted for observation Departure - Departure Time of Disposition: 14:14 Disposition: Admitted As Inpatient 67 Condition: Good Clinical Impression: Cellulitis of left upper arm - Discharge Information Referrals: PCP,None [Primary Care Provider] - Forms: ED Department Discharge - My Orders Last 24 Hours: My Active Orders 07/26/18 11:59 Blood Culture x2 Reflex Set [OM.PC] Urgent 07/26/18 12:00 Sodium Chloride 0.9% [Normal Saline] 1,000 ml IV ASDIRECTED 07/26/18 12:20 CULTURE BLOOD [BC] Urgent 07/26/18 12:25 CULTURE BLOOD [BC] Urgent - Assessment/Plan Last 24 Hours: My Active Orders 07/26/18 11:59 Blood Culture x2 Reflex Set [OM.PC] Urgent 07/26/18 12:00 Sodium Chloride 0.9% [Normal Saline] 1,000 ml IV ASDIRECTED 07/26/18 12:20 CULTURE BLOOD [BC] Urgent 07/26/18 12:25 CULTURE BLOOD [BC] Urgent
[2018-07-26] MEDS ORDERED: Metoclopramide 10 MG/2 ML SDV IVPUSH ONE (12:39)
[2018-07-26] MEDS ORDERED: Ketorolac 30 MG/ML SDV IVPUSH ONE (14:23)
[2018-07-26] MEDS ORDERED: Aluminum Hydroxide/Magnesium Hydroxide/Simethicone Susp 30 ML Cup PO ONE ×2 (14:24→22:03)
--- NOTE | 2018-07-26 14:38 | PCM.HP ---
H&P History of Present Illness - General Date of Service: 07/26/18 Admit Problem/Dx: Admission Diagnosis/Problem Admission Diagnosis/Problem Cellulitis of arm Source of Information: Patient, Provider History Limitations: Reports: No Limitations - History of Present Illness Initial Comments - Free Text/Narative: CC: My arm turned red HPI: Martha presented to the emergency room today with redness, warmth and swelling involving left arm. She reported feeling unwell last night with mild nausea, diffuse myalgias especially in her lower back. She slept okay last night she woke up this morning she had swelling as well as warmth and tenderness in her left arm. Redness and swelling seemed to be progressing describes moderate pain throughout the arm she did take some Tylenol at home but this did not help. She felt subjective fevers chills last night and again this morning but has not measured pressure on the arm makes the pain worse. This feels very similar to previous episodes of cellulitis involving that arm. She is not aware of any injuries to the arm other than possibly some mosquito bites. No reports of chest pain, shortness of breath or abdominal pain. No change in bowel or bladder habits. No lower extremity swelling. No skin rashes noted. Workup in the emergency room was suggestive of cellulitis involving most of the left arm and early sepsis with tachycardia, lactic acidosis. She has received clindamycin and IV fluids. Cultures have been obtained. She will be admitted for further management. - Related Data Allergies/Adverse Reactions: Allergies Allergy/AdvReac Type Severity Reaction Status Date / Time propoxyphene [From Darvon] Allergy Nausea and Verified 07/26/18 12:22 Vomiting acetaminophen [From Vicodin] AdvReac Vomiting Verified 07/26/18 12:22 hydrocodone bitartrate AdvReac Vomiting Verified 07/26/18 12:22 [From Vicodin] morphine AdvReac Vomiting Verified 07/26/18 12:22 oxycodone HCl [From Percodan] AdvReac Vomiting Verified 07/26/18 12:22 oxycodone terephthalate AdvReac Vomiting Verified 07/26/18 12:22 [From Percodan] pentazocine lactate AdvReac Vomiting Verified 07/26/18 12:22 [From Talwin] Home Medications: Home Meds Insulin Glarg,Human.Rec.Analog [Lantus] 32 unit SQ DAILY 03/31/14 [History] Liraglutide [Victoza] 1.2 mg SQ DAILY 08/13/16 [History] Lactobacillus Rhamnosus GG [Culturelle] 1 cap PO BID #30 cap 07/21/17 [Rx] Past Medical History HEENT History: Reports: Impaired Vision Other HEENT History: throat narrows and needs dilations done Cardiovascular History: Reports: High Cholesterol, Hypertension Gastrointestinal History: Reports: Colon Polyp, Diverticulosis, GERD TIP FIXER History: Reports: Musculoskeletal History: Reports: Arthritis Neurological History: Reports: Neuropathy, Diabetic Psychiatric History: Reports: Depression Endocrine/Metabolic History: Reports: Diabetes, Type II Oncologic (Cancer) History: Reports: Breast Dermatologic History: Reports: Cellulitis - Infectious Disease History Infectious Disease History: Reports: Chicken Pox, Shingles - Past Surgical History GI Surgical History: Reports: Cholecystectomy, Colonoscopy, EGD, Esophageal Dilatation Female Surgical History: Reports: Tubal Ligation Neurological Surgical History: Reports: C-Spine Musculoskeletal Surgical History: Reports: Shoulder Surgery Other Musculoskeletal Surgeries/Procedures:: rotator cuff right x2 Social & Family History - Family History Family Medical History: Noncontributory - Tobacco Use Smoking Status *Q: Never Smoker - Caffeine Use Caffeine Use: Reports: Soda Other Caffeine Use: 32 oz per day - Alcohol Use Alcohol Use History: No H&P Review of Systems - Review of Systems: Review Of Systems: See Below Free Text/Narrative: A complete 12 point review of systems was obtained. Pertinent positives and negatives are noted in the history of present illness. All other systems were reviewed and were negative except as noted. Exam - Exam Exam: See Below - Vital Signs Vital Signs: Last Vital Signs Temp 36.9 C 07/26/18 12:29 Pulse 108 H 07/26/18 12:29 Resp 13 07/26/18 12:29 BP 164/85 H 07/26/18 12:29 Pulse Ox 95 07/26/18 12:29 Weight: 77.111 kg - Exam Quality Assessment: No: Supplemental Oxygen General: Alert, Oriented, Cooperative. No: Mild Distress HEENT: Conjunctiva Clear, Mucosa Moist & [place]. No: Scleral Icterus Neck: Supple, Trachea Midline. No: Lymphadenopathy Lungs: Clear to Auscultation, Normal Respiratory Effort Cardiovascular: Regular Rhythm, Tachycardia. No: Systolic Murmur GI/Abdominal Exam: Normal Bowel Sounds, Soft, Non-Tender, No Distention Back Exam: Normal Inspection, Full Range of Motion Extremities: No Pedal Edema, Increased Warmth (Left arm from wrist to near the shoulder) Skin: Warm, Dry, Rash (Erythema involving most of the left arm from just distal to the shoulder all the way down to rest) Neuro Extensive - Mental Status: Alert, Oriented x3, Nl Response to Commands Neuro Extensive - Motor, Sensory, Reflexes: No: Dysarthria, Abnormal Motor, Tremor Psychiatric: Alert, Normal Affect - Patient Data Lab Results Last 24 hrs: Laboratory Results - last 24 hr 07/26/18 07/26/18 07/26/18 Range/Units 12:27 12:27 12:27 WBC 13.7 H (4.5-11.0) K/uL RBC 4.65 (3.30-5.50) M/uL Hgb 13.7 (12.0-15.0) g/dL Hct 41.5 (36.0-48.0) % MCV 89 (80-98) fL MCH 30 (27-31) pg MCHC 33 (32-36) % Plt Count 270 (150-400) K/uL Neut % (Auto) 87 H (36-66) % Lymph % (Auto) 9 L (24-44) % [place] % (Auto) 4 (2-6) % Eos % (Auto) 0 L (2-4) % Baso % (Auto) 0 (0-1) % Sodium 138 L (140-148) mmol/L Potassium 3.9 (3.6-5.2) mmol/L Chloride 103 (100-108) mmol/L Carbon Dioxide 27 (21-32) mmol/L Anion Gap 11.9 (5.0-14.0) mmol/L BUN 15 D (7-18) mg/dL Creatinine 0.7 (0.6-1.0) mg/dL Est Cr Clr Drug Dosing 74.98 mL/min Estimated GFR (MDRD) > 60 (>60) Glucose 272 H (74-106) mg/dL Lactic Acid 2.1 H (0.4-2.0) mmol/L Calcium 9.2 (8.5-10.1) mg/dL Result Diagrams: 07/26/18 12:27 07/26/18 12:27 *Q Meaningful Use (ADM) - VTE Risk Assess *Q Each Risk Factor Represents 1 Point: Obesity ( BMI > 25 kg/m2), Sepsis Total Score 1 Point Risk Factors: 2 Each Risk Factor Represents 2 Points: Age 60 - 74 Years, Malignancy (present or previous) Total Score 2 Point Risk Factors: 4 Each Risk Factor Represents 3 Points: None Total Score 3 Point Risk Factors: 0 Each Risk Factor Represents 5 Points: None Total Score 5 Point Risk Factors: 0 Venous Thromboembolism Risk Factor Score *Q: 6 - Problem List (1) Cellulitis of left arm SNOMED Code(s): 149427961 ICD Code: L03.114 - CELLULITIS OF LEFT UPPER LIMB Status: Acute Current Visit: No (2) Lymphedema of left arm SNOMED Code(s): 54040558359273413 ICD Code: I89.0 - LYMPHEDEMA, NOT ELSEWHERE CLASSIFIED Status: Acute Current Visit: No (3) Type 2 diabetes mellitus SNOMED Code(s): 75115128 ICD Code: E11.9 - TYPE 2 DIABETES MELLITUS WITHOUT COMPLICATIONS Status: Chronic Current Visit: No Qualifiers: Diabetes mellitus oysterman insulin use: with oysterman use Diabetes mellitus complication status: without complication Qualified Code(s): E11.9 - Type 2 diabetes mellitus without complications; Z79.4 - oysterman (current) use of insulin (4) Malignant neoplasm of breast (female) SNOMED Code(s): 387061523 ICD Code: C50.919 - MALIGNANT NEOPLASM OF UNSP SITE OF UNSPECIFIED FEMALE BREAST Status: Chronic Current Visit: No Qualifiers: Breast location: unspecified site of breast Estrogen receptor status: unspecified Laterality: left Qualified Code(s): C50.912 - Malignant neoplasm of unspecified site of left female breast Problem List Initiated/Reviewed/Updated: Yes Orders Last 24hrs: Active Orders 24 hr Category Date Time Status Patient Status Manage Transfer [TRANSFER] Routine ADT 07/26/18 14:25 Ordered CULTURE BLOOD [BC] Urgent Lab 07/26/18 12:20 Received CULTURE BLOOD [BC] Urgent Lab 07/26/18 12:25 Received Sodium Chloride 0.9% [Normal Saline] 1,000 ml Med 07/26/18 12:00 Active IV ASDIRECTED Blood Culture x2 Reflex Set [OM.PC] Urgent Oth 07/26/18 11:59 Ordered Resuscitation Status Routine Resus Stat 07/26/18 14:26 Ordered Medication Orders Sodium Chloride (Normal Saline) 1,000 mls @ 500 mls/hr IV ASDIRECTED EITAN Last Admin: 07/26/18 12:15 Dose: 500 mls/hr Assessment/Plan Comment:: ASSESSMENT AND PLAN - Left arm cellulitis with early sepsis - erythema, redness and swelling involving most left arm. History of similar episodes. Evidence for sepsis includes tachycardia lactic acidosis. She has received IV fluids, antibiotics and cultures have been obtained. -Second 1 L bolus to complete 30 mL/kg bolus bolus -Antibiotic coverage with clindamycin -Pain/fever control -Repeat lactic acid -Gentle fluids overnight -Follow-up cultures History of breast cancer - She did have a lymph node dissection in the left axilla and has had mild chronic lymphedema since then. Insulin-dependent diabetes mellitus - Moderate elevation of blood sugar, patient did not take insulin this morning. -Lantus 20 units 1 now -40 units starting the morning -Low dose sliding scale -Accu-Cheks 4 times daily Maintenance issues - - DVT prophylaxis - mechanical - GI prophylaxis - not indicated - Nutrition - diabetic diet - William catheter - not indicated CODE STATUS - Full code Admission justification - This patient will be admitted for inpatient services and is medically appropriate meeting medical necessity for inpatient admission as outlined in my documentation. I reasonably expect the patient will require inpatient services that span a period time over 2 midnights. I reasonably expect this patient to be discharged or transferred within 96 hours [facility] Disposition - I would anticipate discharge to home after the hospital stay Primary care physician - Tl Norman M.D.
[2018-07-26] MEDS ORDERED: Magnesium Hydroxide 400 MG/5 ML Susp 30 ML Cup PO PRN (15:12)
[2018-07-26] MEDS ORDERED: Ondansetron 4 MG Tab.DIS PO PRN (15:12)
[2018-07-26] MEDS ORDERED: Ondansetron 4 MG/2 ML SDV IV PRN (15:12)
[2018-07-26] MEDS ORDERED: Sodium Chloride 0.9% 1,000 ML IV ONE (15:30)
[2018-07-26] MEDS ORDERED: Insulin Glargine,Human Rec. Analog 100 Units/ML 3 ML Pen SUBCUT ONE (15:30)
[2018-07-26] MEDS: Insulin Lispro 100 Unit/ML 3 ML KwikPen SUBCUT SCH ×2 (16:37→21:11)
[2018-07-26] MEDS: Sodium Chloride 0.9% 1,000 ML IV SCH (17:11)
[2018-07-26] MEDS: Acetaminophen 325 MG Tab PO PRN (19:30)
[2018-07-26] MEDS: Ketorolac 30 MG/ML SDV IM PRN (19:30)
[2018-07-26] MEDS: Lactobacillus Rhamnosus GG (Probiotic) Cap PO SCH (21:48)
[2018-07-27] MEDS: Sodium Chloride 0.9% 1,000 ML IV SCH (02:12)
[2018-07-27] MEDS: Acetaminophen 325 MG Tab PO PRN (04:20)
[2018-07-27] MEDS: Insulin Lispro 100 Unit/ML 3 ML KwikPen SUBCUT SCH ×4 (09:12→21:11)
[2018-07-27] MEDS: Lactobacillus Rhamnosus GG (Probiotic) Cap PO SCH ×2 (09:17→21:11)
[2018-07-27] MEDS: Insulin Glargine,Human Rec. Analog 100 Units/ML 3 ML Pen SUBCUT SCH (09:17)
[2018-07-27] MEDS: Liraglutide (rDNA Origin) 0.6 MG/0.1 ML 3 ML Pen SUBCUT SCH (09:18)
[2018-07-27] MEDS: Ketorolac 30 MG/ML SDV IM PRN (10:37)
--- NOTE | 2018-07-27 11:41 | PCM.PN ---
- General Info Date of Service: 07/27/18 Subjective Update: Low-grade fever overnight but no acute events. Mild pain in the left arm. Swelling and erythema are similar to yesterday but not dramatically improved. Patient feels better today with less muscle aches. No abdominal pain or nausea. White blood cell count is slightly better today. Functional Status: Reports: Pain Controlled, Tolerating Diet - Review of Systems General: Reports: Fever - Patient Data Vitals - Most Recent: Last Vital Signs Temp 36.8 C 07/27/18 08:42 Pulse 89 07/27/18 08:42 Resp 16 07/27/18 08:42 BP 139/69 07/27/18 08:42 Pulse Ox 94 L 07/27/18 08:42 Weight - Most Recent: 78.925 kg I&O - Last 24 Hours: Intake & Output 07/26/18 07/27/18 07/27/18 22:59 06:59 14:59 Intake Total 1147 1221 1240 Output Total 1650 600 500 Balance -503 621 740 Lab Results Last 24 Hours: Laboratory Results - last 24 hr 07/26/18 07/26/18 07/26/18 Range/Units 12:27 12:27 12:27 WBC 13.7 H (4.5-11.0) K/uL RBC 4.65 (3.30-5.50) M/uL Hgb 13.7 (12.0-15.0) g/dL Hct 41.5 (36.0-48.0) % MCV 89 (80-98) fL MCH 30 (27-31) pg MCHC 33 (32-36) % Plt Count 270 (150-400) K/uL Neut % (Auto) 87 H (36-66) % Lymph % (Auto) 9 L (24-44) % [place] % (Auto) 4 (2-6) % Eos % (Auto) 0 L (2-4) % Baso % (Auto) 0 (0-1) % Sodium 138 L (140-148) mmol/L Potassium 3.9 (3.6-5.2) mmol/L Chloride 103 (100-108) mmol/L Carbon Dioxide 27 (21-32) mmol/L Anion Gap 11.9 (5.0-14.0) mmol/L BUN 15 D (7-18) mg/dL Creatinine 0.7 (0.6-1.0) mg/dL Est Cr Clr Drug Dosing 74.98 mL/min Estimated GFR (MDRD) > 60 (>60) Glucose 272 H (74-106) mg/dL Lactic Acid 2.1 H (0.4-2.0) mmol/L Calcium 9.2 (8.5-10.1) mg/dL 07/26/18 07/27/18 Range/Units 16:36 05:20 WBC 10.4 (4.5-11.0) K/uL RBC 4.03 (3.30-5.50) M/uL Hgb 11.5 L D (12.0-15.0) g/dL Hct 36.1 (36.0-48.0) % MCV 90 (80-98) fL MCH 29 (27-31) pg MCHC 32 (32-36) % Plt Count 215 (150-400) K/uL Neut % (Auto) (36-66) % Lymph % (Auto) (24-44) % [place] % (Auto) (2-6) % Eos % (Auto) (2-4) % Baso % (Auto) (0-1) % Sodium (140-148) mmol/L Potassium (3.6-5.2) mmol/L Chloride (100-108) mmol/L Carbon Dioxide (21-32) mmol/L Anion Gap (5.0-14.0) mmol/L BUN (7-18) mg/dL Creatinine (0.6-1.0) mg/dL Est Cr Clr Drug Dosing mL/min Estimated GFR (MDRD) (>60) Glucose (74-106) mg/dL Lactic Acid 1.6 (0.4-2.0) mmol/L Calcium (8.5-10.1) mg/dL Med Orders - Current: Current Medications Acetaminophen (Tylenol) 650 mg PO Q4H PRN PRN Reason: Pain (Mild 1-3)/fever Last Admin: 07/27/18 04:20 Dose: 650 mg Clindamycin Phosphate 600 mg/ (Sodium Chloride) 54 mls @ 110 mls/hr IV Q8H EITAN Last Admin: 07/27/18 05:35 Dose: 110 mls/hr Sodium Chloride (Normal Saline) 1,000 mls @ 125 mls/hr IV ASDIRECTED [facility] Last Admin: 07/27/18 02:12 Dose: 125 mls/hr Insulin Glargine (Lantus Solostar) 40 units SUBCUT DAILY [facility] Last Admin: 07/27/18 09:17 Dose: 40 units Insulin Human Lispro (Humalog) 0 unit SUBCUT QIDACANDBED [facility]; Protocol Last Admin: 07/27/18 09:12 Dose: Not Given Ketorolac Tromethamine (Toradol) 30 mg IM Q6H PRN PRN Reason: Pain (moderate 4-6) Last Admin: 07/27/18 10:37 Dose: 30 mg Lactobacillus Rhamnosus (Culturelle) 1 cap PO BID [facility] Last Admin: 07/27/18 09:17 Dose: 1 cap Liraglutide (Victoza) 1.2 mg SUBCUT DAILY [facility] Last Admin: 07/27/18 09:18 Dose: 1.2 mg Magnesium Hydroxide (Milk Of Magnesia) 30 ml PO Q12H PRN PRN Reason: Constipation Ondansetron HCl (Zofran Odt) 4 mg PO Q6H PRN PRN Reason: Nausea able to take PO Ondansetron HCl (Zofran) 4 mg IV Q6H PRN PRN Reason: Nausea/Vomiting Senna/Docusate Sodium (Senna Plus) 1 tab PO BID PRN PRN Reason: Constipation Discontinued Medications Al Hydroxide/Mg Hydroxide (Mag-Al Plus) 30 ml PO ONETIME ONE Stop: 07/26/18 14:25 Last Admin: 07/26/18 15:01 Dose: 30 ml Al Hydroxide/Mg Hydroxide (Mag-Al Plus) 30 ml PO ONETIME ONE Stop: 07/26/18 22:04 Last Admin: 07/26/18 22:27 Dose: 30 ml Sodium Chloride (Normal Saline) 1,000 mls @ 500 mls/hr IV ASDIRECTED [facility] Last Admin: 07/26/18 12:15 Dose: 500 mls/hr Clindamycin Phosphate 300 mg/ (Sodium Chloride) 52 mls @ 150 mls/hr IV ONETIME ONE Stop: 07/26/18 12:21 Last Admin: 07/26/18 12:14 Dose: 150 mls/hr Sodium Chloride (Normal Saline) 1,000 mls @ 999 mls/hr IV ONETIME ONE Stop: 07/26/18 16:30 Last Admin: 07/26/18 16:03 Dose: 999 mls/hr Ibuprofen (Motrin) 400 mg PO ONETIME ONE Stop: 07/26/18 12:01 Last Admin: 07/26/18 12:14 Dose: 400 mg Insulin Glargine (Lantus Solostar) 20 units SUBCUT ONETIME ONE Stop: 07/26/18 15:31 Last Admin: 07/26/18 16:06 Dose: 20 units Ketorolac Tromethamine (Toradol) 30 mg IVPUSH ONETIME ONE Stop: 07/26/18 14:24 Last Admin: 07/26/18 15:01 Dose: 30 mg Metoclopramide HCl (Reglan) 5 mg IVPUSH ONETIME ONE Stop: 07/26/18 12:40 Last Admin: 07/26/18 15:02 Dose: Not Given - Exam Quality Assessment: No: Supplemental Oxygen General: Alert, Oriented, Cooperative, No Acute Distress Lungs: Normal Respiratory Effort GI/Abdominal Exam: Soft, No Distention Extremities: Other (left arm with diffuse swelling and warmth from shoulder to wrist ) Skin: Warm, Dry, Rash (erythema posterior left arm and entire left forearm circumferentially ) Psy/Mental Status: Alert, Normal Affect - Problem List & Annotations (1) Cellulitis of left arm SNOMED Code(s): 528550707 Code(s): L03.114 - CELLULITIS OF LEFT UPPER LIMB Status: Acute Current Visit: No (2) Lymphedema of left arm SNOMED Code(s): 13235964685069933 Code(s): I89.0 - LYMPHEDEMA, NOT ELSEWHERE CLASSIFIED Status: Acute Current Visit: No (3) Type 2 diabetes mellitus SNOMED Code(s): 83372632 Code(s): E11.9 - TYPE 2 DIABETES MELLITUS WITHOUT COMPLICATIONS Status: Chronic Current Visit: No Qualifiers: Diabetes mellitus joint terminal attack controller insulin use: with joint terminal attack controller use Diabetes mellitus complication status: without complication Qualified Code(s): E11.9 - Type 2 diabetes mellitus without complications; Z79.4 - long term care phlebotomist (current) use of insulin (4) Malignant neoplasm of breast (female) SNOMED Code(s): 365657078 Code(s): C50.919 - MALIGNANT NEOPLASM OF UNSP SITE OF UNSPECIFIED FEMALE BREAST Status: Chronic Current Visit: No Qualifiers: Breast location: unspecified site of breast Estrogen receptor status: unspecified Laterality: left Qualified Code(s): C50.912 - Malignant neoplasm of unspecified site of left female breast - Problem List Review Problem List Initiated/Reviewed/Updated: Yes - My Orders Last 24 Hours: My Active Orders 07/26/18 14:26 Resuscitation Status Routine 07/26/18 15:12 Patient Status [ADT] Routine Antiembolic Devices [RC] .Routine Communication Order [RC] PRN Communication Order [RC] PRN Diabetes Education [RC] Click to Edit Intake and Output [RC] QSHIFT Notify Provider Vital Signs [RC] ASDIRECTED Notify Provider [RC] PRN Oxygen Therapy [RC] PRN Up ad Kaylee [RC] ASDIRECTED VTE/DVT Education [RC] Per Unit Routine Vital Signs [RC] Q4H Acetaminophen [Tylenol] 650 mg PO Q4H PRN Docusate Sodium/Sennosides [Senna Plus] 1 tab PO BID PRN Magnesium Hydroxide [Milk of Magnesia] 30 ml PO Q12H PRN Ondansetron [Zofran ODT] 4 mg PO Q6H PRN Ondansetron [Zofran] 4 mg IV Q6H PRN Sodium Chloride 0.9% [Normal Saline] 1,000 ml IV ASDIRECTED Sequential Compression Device [OM.PC] Routine 07/26/18 17:00 Insulin Lispro [HumaLOG] See Protocol SUBCUT QIDACANDBED 07/26/18 19:00 Ketorolac [Toradol] 30 mg IM Q6H PRN 07/26/18 21:00 Lactobacillus Rhamnosus GG [Culturelle] 1 cap PO BID 07/26/18 22:00 Clindamycin Phosphate [Cleocin] 600 mg Sodium Chloride 0.9% [Normal Saline] 50 ml IV Q8H 07/26/18 Dinner Consistent Carbohydrate Diet [DIET] 07/27/18 09:00 Insulin Glarg,Human.Rec.Analog [LantUS Solostar] 40 units SUBCUT DAILY Liraglutide [Victoza] 1.2 mg SUBCUT DAILY 07/27/18 11:45 Sodium Chloride 0.9% [Normal Saline] 1,000 ml IV ASDIRECTED 07/27/18 16:30 GLUCOSE POC LAB TO COLLECT [POC] QIDACANDBED 07/27/18 21:00 GLUCOSE POC LAB TO COLLECT [POC] QIDACANDBED 07/28/18 05:00 BASIC METABOLIC PANEL,BMP [CHEM] Timed CBC W/O DIFF,HEMOGRAM [HEME] Timed (1) 07/28/18 07:30 GLUCOSE POC LAB TO COLLECT [POC] QIDACANDBED 07/28/18 11:30 GLUCOSE POC LAB TO COLLECT [POC] QIDACANDBED 07/28/18 16:30 GLUCOSE POC LAB TO COLLECT [POC] QIDACANDBED 07/28/18 21:00 GLUCOSE POC LAB TO COLLECT [POC] QIDACANDBED 07/29/18 07:30 GLUCOSE POC LAB TO COLLECT [POC] QIDACANDBED 07/29/18 11:30 GLUCOSE POC LAB TO COLLECT [POC] QIDACANDBED 07/29/18 16:30 GLUCOSE POC LAB TO COLLECT [POC] QIDACANDBED 07/29/18 21:00 GLUCOSE POC LAB TO COLLECT [POC] QIDACANDBED 07/30/18 07:30 GLUCOSE POC LAB TO COLLECT [POC] QIDACANDBED 07/30/18 11:30 GLUCOSE POC LAB TO COLLECT [POC] QIDACANDBED - Plan Plan:: ASSESSMENT AND PLAN - Left arm cellulitis with early sepsis - sepsis has resolved. Erythema and swelling are similar to yesterday. White blood cell count a little better. Cultures negative so far. -Antibiotic coverage with clindamycin -Pain/fever control -Gentle fluids overnight -Follow-up cultures History of breast cancer - She did have a lymph node dissection in the left axilla and has had mild chronic lymphedema since then. Insulin-dependent diabetes mellitus - blood sugars acceptable. -40 units starting the morning -Low dose sliding scale -Accu-Cheks 4 times daily Maintenance issues - - DVT prophylaxis - mechanical - GI prophylaxis - not indicated - Nutrition - diabetic diet Disposition - I would anticipate discharge to home after the hospital stay Primary care physician - Tl Norman M.D.
[2018-07-27] MEDS ORDERED: Sodium Chloride 0.9% 1,000 ML IV SCH (11:45)
[2018-07-27] MEDS: Ketorolac 30 MG/ML SDV IVPUSH PRN ×2 (16:49→23:09)
[2018-07-27] MEDS: ceFAZolin 2 GM in Premix Bag 1 BAG IV SCH (17:04)
[2018-07-28] MEDS: ceFAZolin 2 GM in Premix Bag 1 BAG IV SCH ×4 (01:14→23:44)
[2018-07-28] MEDS: Lactobacillus Rhamnosus GG (Probiotic) Cap PO SCH ×2 (08:17→21:42)
[2018-07-28] MEDS: Liraglutide (rDNA Origin) 0.6 MG/0.1 ML 3 ML Pen SUBCUT SCH (08:20)
[2018-07-28] MEDS: Insulin Glargine,Human Rec. Analog 100 Units/ML 3 ML Pen SUBCUT SCH (08:21)
[2018-07-28] MEDS: Insulin Lispro 100 Unit/ML 3 ML KwikPen SUBCUT SCH ×4 (08:33→21:40)
--- NOTE | 2018-07-28 11:00 | PCM.PN ---
- General Info Date of Service: 07/28/18 Subjective Update: There were no acute events overnight. No fevers overnight. Pain and swelling are a little bit better today with change in antibiotics yesterday. White blood cell count trending down. Appetite is been good. Blood sugars have been good. Functional Status: Reports: Pain Controlled, Tolerating Diet - Review of Systems General: Denies: Fever - Patient Data Vitals - Most Recent: Last Vital Signs Temp 35.6 C 07/28/18 10:43 Pulse 86 07/28/18 10:43 Resp 16 07/28/18 10:43 BP 142/76 H 07/28/18 10:43 Pulse Ox 94 L 07/28/18 10:43 Weight - Most Recent: 78.925 kg I&O - Last 24 Hours: Intake & Output 07/27/18 07/28/18 07/28/18 22:59 06:59 14:59 Intake Total 806 184 Output Total 1000 2300 Balance -194 -2116 Lab Results Last 24 Hours: Laboratory Results - last 24 hr 07/28/18 07/28/18 Range/Units 06:02 06:02 WBC 8.0 (4.5-11.0) K/uL RBC 3.90 (3.30-5.50) M/uL Hgb 11.3 L (12.0-15.0) g/dL Hct 35.3 L (36.0-48.0) % MCV 91 (80-98) fL MCH 29 (27-31) pg MCHC 32 (32-36) % Plt Count 219 (150-400) K/uL Sodium 143 (140-148) mmol/L Potassium 4.0 (3.6-5.2) mmol/L Chloride 109 H (100-108) mmol/L Carbon Dioxide 26 (21-32) mmol/L Anion Gap 12.0 (5.0-14.0) mmol/L BUN 16 (7-18) mg/dL Creatinine 0.6 (0.6-1.0) mg/dL Est Cr Clr Drug Dosing 87.48 mL/min Estimated GFR (MDRD) > 60 (>60) Glucose 147 H (74-106) mg/dL Calcium 8.5 (8.5-10.1) mg/dL Jonathan Results Last 24 Hours: Microbiology 07/26/18 12:20 Aerobic Blood Culture - Preliminary Blood - Arm, Right NO GROWTH AFTER 1 DAY Anaerobic Blood Culture - Preliminary NO GROWTH AFTER 1 DAY 07/26/18 12:25 Aerobic Blood Culture - Preliminary Blood - Arm, Right NO GROWTH AFTER 1 DAY Anaerobic Blood Culture - Preliminary NO GROWTH AFTER 1 DAY Med Orders - Current: Current Medications Acetaminophen (Tylenol) 650 mg PO Q4H PRN PRN Reason: Pain (Mild 1-3)/fever Last Admin: 07/27/18 04:20 Dose: 650 mg Sodium Chloride (Normal Saline) 1,000 mls @ 25 mls/hr IV ASDIRECTED [facility] Cefazolin Sodium/Dextrose 2 gm (/ Premix) 50 mls @ 100 mls/hr IV Q8H [facility] Last Admin: 07/28/18 08:16 Dose: 100 mls/hr Insulin Glargine (Lantus Solostar) 40 units SUBCUT DAILY [facility] Last Admin: 07/28/18 08:21 Dose: 40 units Insulin Human Lispro (Humalog) 0 unit SUBCUT QIDACANDBED [facility]; Protocol Last Admin: 07/28/18 08:33 Dose: Not Given Ketorolac Tromethamine (Toradol) 30 mg IVPUSH Q6H PRN PRN Reason: Pain (moderate 4-6) Last Admin: 07/27/18 23:09 Dose: 30 mg Lactobacillus Rhamnosus (Culturelle) 1 cap PO BID [facility] Last Admin: 07/28/18 08:17 Dose: 1 cap Liraglutide (Victoza) 1.2 mg SUBCUT DAILY [facility] Last Admin: 07/28/18 08:20 Dose: 1.2 mg Magnesium Hydroxide (Milk Of Magnesia) 30 ml PO Q12H PRN PRN Reason: Constipation Ondansetron HCl (Zofran Odt) 4 mg PO Q6H PRN PRN Reason: Nausea able to take PO Last Admin: 07/27/18 16:08 Dose: 4 mg Ondansetron HCl (Zofran) 4 mg IV Q6H PRN PRN Reason: Nausea/Vomiting Senna/Docusate Sodium (Senna Plus) 1 tab PO BID PRN PRN Reason: Constipation Discontinued Medications Al Hydroxide/Mg Hydroxide (Mag-Al Plus) 30 ml PO ONETIME ONE Stop: 07/26/18 14:25 Last Admin: 07/26/18 15:01 Dose: 30 ml Al Hydroxide/Mg Hydroxide (Mag-Al Plus) 30 ml PO ONETIME ONE Stop: 07/26/18 22:04 Last Admin: 07/26/18 22:27 Dose: 30 ml Sodium Chloride (Normal Saline) 1,000 mls @ 500 mls/hr IV ASDIRECTED [facility] Last Admin: 07/26/18 12:15 Dose: 500 mls/hr Clindamycin Phosphate 300 mg/ (Sodium Chloride) 52 mls @ 150 mls/hr IV ONETIME ONE Stop: 07/26/18 12:21 Last Admin: 07/26/18 12:14 Dose: 150 mls/hr Clindamycin Phosphate 600 mg/ (Sodium Chloride) 54 mls @ 110 mls/hr IV Q8H [facility] Last Admin: 07/27/18 14:55 Dose: 110 mls/hr Sodium Chloride (Normal Saline) 1,000 mls @ 125 mls/hr IV ASDIRECTED [facility] Last Admin: 07/27/18 02:12 Dose: 125 mls/hr Sodium Chloride (Normal Saline) 1,000 mls @ 999 mls/hr IV ONETIME ONE Stop: 07/26/18 16:30 Last Admin: 07/26/18 16:03 Dose: 999 mls/hr Ibuprofen (Motrin) 400 mg PO ONETIME ONE Stop: 07/26/18 12:01 Last Admin: 07/26/18 12:14 Dose: 400 mg Insulin Glargine (Lantus Solostar) 20 units SUBCUT ONETIME ONE Stop: 07/26/18 15:31 Last Admin: 07/26/18 16:06 Dose: 20 units Ketorolac Tromethamine (Toradol) 30 mg IVPUSH ONETIME ONE Stop: 07/26/18 14:24 Last Admin: 07/26/18 15:01 Dose: 30 mg Ketorolac Tromethamine (Toradol) 30 mg IM Q6H PRN PRN Reason: Pain (moderate 4-6) Last Admin: 07/27/18 10:37 Dose: 30 mg Metoclopramide HCl (Reglan) 5 mg IVPUSH ONETIME ONE Stop: 07/26/18 12:40 Last Admin: 07/26/18 15:02 Dose: Not Given - Exam Quality Assessment: No: Supplemental Oxygen General: Alert, Oriented, Cooperative, No Acute Distress Lungs: Normal Respiratory Effort Cardiovascular: Regular Rate, Regular Rhythm GI/Abdominal Exam: Soft, No Distention Extremities: Increased Warmth (left arm posteriorly in upper arm and left forearm ) Psy/Mental Status: Alert, Normal Affect - Problem List & Annotations (1) Cellulitis of left arm SNOMED Code(s): 699894849 Code(s): L03.114 - CELLULITIS OF LEFT UPPER LIMB Status: Acute Current Visit: No (2) Lymphedema of left arm SNOMED Code(s): 23912218689341984 Code(s): I89.0 - LYMPHEDEMA, NOT ELSEWHERE CLASSIFIED Status: Acute Current Visit: No (3) Type 2 diabetes mellitus SNOMED Code(s): 53073329 Code(s): E11.9 - TYPE 2 DIABETES MELLITUS WITHOUT COMPLICATIONS Status: Chronic Current Visit: No Qualifiers: Diabetes mellitus nursing home insulin use: with oysterman use Diabetes mellitus complication status: without complication Qualified Code(s): E11.9 - Type 2 diabetes mellitus without complications; Z79.4 - oysterman (current) use of insulin (4) Malignant neoplasm of breast (female) SNOMED Code(s): 829280444 Code(s): C50.919 - MALIGNANT NEOPLASM OF UNSP SITE OF UNSPECIFIED FEMALE BREAST Status: Chronic Current Visit: No Qualifiers: Breast location: unspecified site of breast Estrogen receptor status: unspecified Laterality: left Qualified Code(s): C50.912 - Malignant neoplasm of unspecified site of left female breast - Problem List Review Problem List Initiated/Reviewed/Updated: Yes - My Orders Last 24 Hours: My Active Orders 07/27/18 11:45 Sodium Chloride 0.9% [Normal Saline] 1,000 ml IV ASDIRECTED 07/27/18 15:23 Ketorolac [Toradol] 30 mg IVPUSH Q6H PRN 07/27/18 16:00 ceFAZolin [Ancef] 2 gm Premix Bag 1 bag IV Q8H 07/28/18 11:30 GLUCOSE POC LAB TO COLLECT [POC] QIDACANDBED 07/28/18 16:30 GLUCOSE POC LAB TO COLLECT [POC] QIDACANDBED 07/28/18 21:00 GLUCOSE POC LAB TO COLLECT [POC] QIDACANDBED 07/29/18 07:30 GLUCOSE POC LAB TO COLLECT [POC] QIDACANDBED 07/29/18 11:30 GLUCOSE POC LAB TO COLLECT [POC] QIDACANDBED 07/29/18 16:30 GLUCOSE POC LAB TO COLLECT [POC] QIDACANDBED 07/29/18 21:00 GLUCOSE POC LAB TO COLLECT [POC] QIDACANDBED 07/30/18 07:30 GLUCOSE POC LAB TO COLLECT [POC] QIDACANDBED 07/30/18 11:30 GLUCOSE POC LAB TO COLLECT [POC] QIDACANDBED - Plan Plan:: ASSESSMENT AND PLAN - Left arm cellulitis with early sepsis - sepsis has resolved. Erythema and swelling have improved compared to yesterday white blood cell count is trending down. -Continue cefazolin and transition to cephalexin at time of discharge -Pain/fever control -Saline lock IV -Follow-up cultures History of breast cancer - She did have a lymph node dissection in the left axilla and has had mild chronic lymphedema since then. Insulin-dependent diabetes mellitus - blood sugars acceptable. -40 units starting the morning -Low dose sliding scale -Accu-Cheks 4 times daily Maintenance issues - - DVT prophylaxis - mechanical - GI prophylaxis - not indicated - Nutrition - diabetic diet Disposition - I would anticipate discharge to home after the hospital stay, possibly tomorrow if stable overnight Primary care physician - Tl Norman M.D.
[2018-07-28] MEDS ORDERED: hydrOXYzine HCl 25 MG Tab PO PRN (15:06)
[2018-07-28] MEDS: Ketorolac 30 MG/ML SDV IVPUSH PRN (17:15)
[2018-07-29] MEDS: ceFAZolin 2 GM in Premix Bag 1 BAG IV SCH (07:09)
[2018-07-29] MEDS: Insulin Lispro 100 Unit/ML 3 ML KwikPen SUBCUT SCH ×2 (07:42→12:06)
[2018-07-29] MEDS: Liraglutide (rDNA Origin) 0.6 MG/0.1 ML 3 ML Pen SUBCUT SCH ×2 (07:53→08:54)
[2018-07-29] MEDS: Insulin Glargine,Human Rec. Analog 100 Units/ML 3 ML Pen SUBCUT SCH ×2 (07:54→08:54)
[2018-07-29] MEDS: Lactobacillus Rhamnosus GG (Probiotic) Cap PO SCH ×2 (07:55→08:54)
[2018-07-29 10:38] VITALS: BP 139/70
--- NOTE | 2018-07-29 12:53 | PCM.DCSUM1 ---
Discharge Summary - Hospital Course Brief History: Ms. Campbell is a 63-year-old woman who was admitted through the emergency department with fever and swelling of her left upper extremity secondary to cellulitis. - Discharge Data Discharge Date: 07/29/18 Discharge Disposition: Home, Self-Care 01 Condition: Good - Discharge Diagnosis/Problem(s) (1) Lymphedema of left arm SNOMED Code(s): 06777192513830327 ICD Code: I89.0 - LYMPHEDEMA, NOT ELSEWHERE CLASSIFIED Status: Acute Current Visit: Yes (2) Cellulitis of left upper arm SNOMED Code(s): 05448081 ICD Code: L03.114 - CELLULITIS OF LEFT UPPER LIMB Status: Acute Current Visit: Yes (3) Type 2 diabetes mellitus SNOMED Code(s): 76389894 ICD Code: E11.9 - TYPE 2 DIABETES MELLITUS WITHOUT COMPLICATIONS Status: Chronic Current Visit: No Qualifiers: Diabetes mellitus senior care insulin use: with senior care use Diabetes mellitus complication status: without complication Qualified Code(s): E11.9 - Type 2 diabetes mellitus without complications; Z79.4 - residential (current) use of insulin - Patient Summary/Data Hospital Course: Ms. Campbell is a 63-year-old woman presented to the emergency room today with redness, warmth and swelling involving left arm. She reported feeling unwell last night with mild nausea, diffuse myalgias especially in her lower back. She slept okay last night she woke up this morning she had swelling as well as warmth and tenderness in her left arm. She is status post left mastectomy and has chronic lymphedema involving her left upper extremity. Redness and swelling seemed to be progressing describes moderate pain throughout the arm she did take some Tylenol at home but this did not help. She felt subjective fevers chills last night and again this morning. This feels very similar to previous episodes of cellulitis involving that arm. She is not aware of any injuries to the arm other than possibly some mosquito bites. No reports of chest pain, shortness of breath or abdominal pain. No change in bowel or bladder habits. No lower extremity swelling. No skin rashes noted. Workup in the emergency room was suggestive of cellulitis involving most of the left arm and early sepsis with tachycardia, lactic acidosis. She has received clindamycin and IV fluids. Cultures have been obtained. She will be admitted for further management. After admission IV clindamycin was continued but the following day there did not appear to be significant improvement in the cellulitis. For this reason she was transitioned to IV antibiotic therapy with ceftezole and and by the following day there had been significant improvement in the cellulitis. Blood sugars were monitored throughout hospital stay for management of her diabetes. By the morning of discharge cellulitis had almost totally resolved and she was feeling significantly improved and had been afebrile for over 48 hours. She will be discharged to home on additional 4 days of oral antibiotic therapy with cephalexin. Activity will be as tolerated and she will resume her usual diabetic diet. Follow-up appointment will be scheduled with her primary care provider within one week. She will return to the emergency department if she notes recurrent increased swelling or erythema involving the arm. She will take probiotics twice daily over the next several weeks. - Patient Instructions Diet: Diabetic Diet Activity: As Tolerated Other/Special Instructions: Please schedule follow-up appointment with primary care provider within one week. - Discharge Plan *PRESCRIPTION DRUG MONITORING PROGRAM REVIEWED*: Not Applicable *COPY OF PRESCRIPTION DRUG MONITORING REPORT IN PATIENT SHAHZAD: Not Applicable Prescriptions/Med Rec: Cephalexin [Keflex] 500 mg PO Q8H #12 capsule valACYclovir [Valtrex] 2,000 mg PO Q12H #4 tablet Home Medications: Home Meds Insulin Glarg,Human.Rec.Analog [Lantus] 40 unit SQ DAILY 05/05/13 [History] Liraglutide [Victoza] 1.2 mg SQ DAILY 08/13/16 [History] Lactobacillus Rhamnosus GG [Culturelle] 1 cap PO BID #30 cap 07/21/17 [Rx] Cephalexin [Keflex] 500 mg PO Q8H #12 capsule 07/29/18 [Rx] valACYclovir [Valtrex] 2,000 mg PO Q12H #4 tablet 07/29/18 [Rx] - Discharge Summary/Plan Comment DC Time >30 min.: No - Patient Data Vitals - Most Recent: Last Vital Signs Temp 97.2 F 07/29/18 10:37 Pulse 84 07/29/18 10:37 Resp 20 07/29/18 10:37 BP 139/70 07/29/18 10:37 Pulse Ox 93 L 07/29/18 10:37 Weight - Most Recent: 174 lb I&O - Last 24 hours: Intake & Output 07/28/18 07/29/18 07/29/18 22:59 06:59 14:59 Intake Total 250 Output Total 900 Balance -650 ZAIRA Results - Last 24 hrs: Microbiology 07/26/18 12:20 Aerobic Blood Culture - Preliminary Blood - Arm, Right NO GROWTH AFTER 3 DAYS Anaerobic Blood Culture - Preliminary NO GROWTH AFTER 3 DAYS 07/26/18 12:25 Aerobic Blood Culture - Preliminary Blood - Arm, Right NO GROWTH AFTER 3 DAYS Anaerobic Blood Culture - Preliminary NO GROWTH AFTER 3 DAYS Med Orders - Current: Current Medications Acetaminophen (Tylenol) 650 mg PO Q4H PRN PRN Reason: Pain (Mild 1-3)/fever Last Admin: 07/27/18 04:20 Dose: 650 mg Hydroxyzine HCl (Atarax) 25 mg PO Q6H PRN PRN Reason: Itching Last Admin: 07/28/18 16:13 Dose: 25 mg Sodium Chloride (Normal Saline) 1,000 mls @ 25 mls/hr IV ASDIRECTED [facility] Cefazolin Sodium/Dextrose 2 gm (/ Premix) 50 mls @ 100 mls/hr IV Q8H [facility] Last Admin: 07/29/18 07:09 Dose: 100 mls/hr Insulin Glargine (Lantus Solostar) 40 units SUBCUT DAILY [facility] Last Admin: 07/29/18 08:54 Dose: Not Given Insulin Human Lispro (Humalog) 0 unit SUBCUT QIDACANDBED [facility]; Protocol Last Admin: 07/29/18 12:06 Dose: 1 unit Ketorolac Tromethamine (Toradol) 30 mg IVPUSH Q6H PRN PRN Reason: Pain (moderate 4-6) Stop: 08/01/18 15:24 Last Admin: 07/28/18 17:15 Dose: 30 mg Lactobacillus Rhamnosus (Culturelle) 1 cap PO BID [facility] Last Admin: 07/29/18 08:54 Dose: Not Given Liraglutide (Victoza) 1.2 mg SUBCUT DAILY [facility] Last Admin: 07/29/18 08:54 Dose: Not Given Magnesium Hydroxide (Milk Of Magnesia) 30 ml PO Q12H PRN PRN Reason: Constipation Ondansetron HCl (Zofran Odt) 4 mg PO Q6H PRN PRN Reason: Nausea able to take PO Last Admin: 07/27/18 16:08 Dose: 4 mg Ondansetron HCl (Zofran) 4 mg IV Q6H PRN PRN Reason: Nausea/Vomiting Senna/Docusate Sodium (Senna Plus) 1 tab PO BID PRN PRN Reason: Constipation Discontinued Medications Al Hydroxide/Mg Hydroxide (Mag-Al Plus) 30 ml PO ONETIME ONE Stop: 07/26/18 14:25 Last Admin: 07/26/18 15:01 Dose: 30 ml Al Hydroxide/Mg Hydroxide (Mag-Al Plus) 30 ml PO ONETIME ONE Stop: 07/26/18 22:04 Last Admin: 07/26/18 22:27 Dose: 30 ml Sodium Chloride (Normal Saline) 1,000 mls @ 500 mls/hr IV ASDIRECTED [facility] Last Admin: 07/26/18 12:15 Dose: 500 mls/hr Clindamycin Phosphate 300 mg/ (Sodium Chloride) 52 mls @ 150 mls/hr IV ONETIME ONE Stop: 07/26/18 12:21 Last Admin: 07/26/18 12:14 Dose: 150 mls/hr Clindamycin Phosphate 600 mg/ (Sodium Chloride) 54 mls @ 110 mls/hr IV Q8H [facility] Last Admin: 07/27/18 14:55 Dose: 110 mls/hr Sodium Chloride (Normal Saline) 1,000 mls @ 125 mls/hr IV ASDIRECTED [facility] Last Admin: 07/27/18 02:12 Dose: 125 mls/hr Sodium Chloride (Normal Saline) 1,000 mls @ 999 mls/hr IV ONETIME ONE Stop: 07/26/18 16:30 Last Admin: 07/26/18 16:03 Dose: 999 mls/hr Ibuprofen (Motrin) 400 mg PO ONETIME ONE Stop: 07/26/18 12:01 Last Admin: 07/26/18 12:14 Dose: 400 mg Insulin Glargine (Lantus Solostar) 20 units SUBCUT ONETIME ONE Stop: 07/26/18 15:31 Last Admin: 07/26/18 16:06 Dose: 20 units Ketorolac Tromethamine (Toradol) 30 mg IVPUSH ONETIME ONE Stop: 07/26/18 14:24 Last Admin: 07/26/18 15:01 Dose: 30 mg Ketorolac Tromethamine (Toradol) 30 mg IM Q6H PRN PRN Reason: Pain (moderate 4-6) Last Admin: 07/27/18 10:37 Dose: 30 mg Metoclopramide HCl (Reglan) 5 mg IVPUSH ONETIME ONE Stop: 07/26/18 12:40 Last Admin: 07/26/18 15:02 Dose: Not Given - Exam Quality Assessment: Reports: DVT Prophylaxis General: Reports: Alert, Oriented, Cooperative, No Acute Distress Lungs: Reports: Clear to Auscultation, Normal Respiratory Effort Cardiovascular: Reports: Regular Rate, Regular Rhythm, No Murmurs GI/Abdominal Exam: Soft, Non-Tender, No Organomegaly, No Distention Skin: Reports: Other (Almost total resolution of erythema left upper extremity, mild residual lymphedema)
== END 2018-07-29 14:05 | disposition home or self-care (01) | DRG 872 ==
LOC: JP.ED 10:45 → JP.MS 14:25
PROVIDERS: ADMIT Internal Medicine; ATTEND Hospitalist
DX: A41.9 Sepsis, unspecified organism (principal); L03.114 Cellulitis of left upper limb; E87.2 Acidosis; I89.0 Lymphedema, not elsewhere classified; H54.7 Unspecified visual loss; E78.00 Pure hypercholesterolemia, unspecified; I10 Essential (primary) hypertension; K21.9 Gastro-esophageal reflux disease without esophagitis; E11.40 Type 2 diabetes mellitus with diabetic neuropathy, unspecified; M19.90 Unspecified osteoarthritis, unspecified site; F32.9 Major depressive disorder, single episode, unspecified; Z90.49 Acquired absence of other specified parts of digestive tract; Z90.12 Acquired absence of left breast and nipple; Z88.5 Allergy status to narcotic agent; Z88.8 Allergy status to other drugs, medicaments and biological substances; Z86.010 Personal history of colon polyps; Z79.4 Long term (current) use of insulin; Z79.899 Other long term (current) drug therapy
CPT/HCPCS: 36415; 80048; 82962; 83605; 85025; 85027; 87040; 96361; 96365; 99284-25; A9270-GY; J0690; J1815; J1815-GY; J1885; J3490; J7030; J7050